=== PATIENT | female | born 1960 | race Caucasian/White ===

== ENCOUNTER 2020-06-02 06:59 | Outpatient (REF) | payer BC, SELFPAY ==
[2020-06-02 08:51] LABS: Alanine Aminotransferase 15 U/L (0-31); Albumin Level 4.1 g/dL (3.5-5.0); Alkaline Phosphatase 70 U/L (39-117); Anion Gap 14 (12-20); Aspartate Amino Transferase 13 U/L (5-31); Bilirubin Total 0.4 mg/dL (0.0-1.0); Blood Urea Nitrogen 13 mg/dL (9-16); Calcium 9.1 mg/dL (8.4-10.2); Carbon Dioxide 23 mmol/L (22-29); Chloride 107 mmol/L (96-108); Cholesterol 230 mg/dL; Estimated Glomerular Filt Rate > 60; Glucose Fasting 110 mg/dL (60-99); HDL Cholesterol 46 mg/dL; LDL Cholesterol Calculated 148 mg/dl; Potassium 4.4 mmol/L (3.3-5.1); Sodium 140 mmol/L (135-145); Total Protein 6.5 g/dL (6.5-8.0); Triglycerides 182 mg/dL
[2020-06-02 09:12] LABS: TSH reflex Free T4 1.44 uIU/mL (0.32-4.0)
[2020-06-02 09:40] LABS: Creatinine Urine 214.06 mg/dL
== END 2020-06-02 07:00 | disposition home or self-care (01) ==
LOC: HO.LAB 06:59
PROVIDERS: PCP Family Medicine; Visit Provider Family Medicine
DX: I10 Essential (primary) hypertension (principal); R73.03 Prediabetes; Z00.00 Encounter for general adult medical examination without abnormal findings
CPT/HCPCS: 36415; 80053; 80061; 82043; 84443

== ENCOUNTER 2021-10-30 09:20 | Outpatient (REF) | payer OTHER, SELFPAY ==
[2021-10-30 11:34] LABS: Hematocrit 42.4 % (37.0-47.0); Hemoglobin 14.1 g/dl (12.0-16.0); Mean Corpuscular HGB Conc 33.3 g/dl (31.0-35.0); Mean Corpuscular Hemoglobin 30.8 pg (27.0-33.0); Mean Corpuscular Volume 92.6 fL (80.0-98.0); Mean Platelet Volume 11.9 fL (9.4-12.3); Platelet Count 252 X10*3/uL (160-400); Red Blood Count 4.58 X10*6/uL (4.20-5.50); Red Cell Distribution Width 12.5 % (11.0-16.0); White Blood Count 9.6 X10*3/uL (4.8-10.8)
== END 2021-10-30 09:21 | disposition home or self-care (01) ==
LOC: HO.WFDLDS 09:20
PROVIDERS: Visit Provider Hospitalist
DX: M79.622 Pain in left upper arm (principal)
CPT/HCPCS: 36415; 85027

== ENCOUNTER 2022-07-08 06:19 | Outpatient (REF) | payer OTHER, SELFPAY ==
[2022-07-08 07:42] LABS: Hematocrit 40.5 % (37.0-47.0); Hemoglobin 13.5 g/dl (12.0-16.0); Mean Corpuscular HGB Conc 33.3 g/dl (31.0-35.0); Mean Corpuscular Hemoglobin 30.3 pg (27.0-33.0); Mean Platelet Volume 11.6 fL (9.4-12.3); Platelet Count 251 X10*3/uL (160-400); Red Blood Count 4.45 X10*6/uL (4.20-5.50); Red Cell Distribution Width 12.7 % (11.0-16.0); White Blood Count 8.9 X10*3/uL (4.8-10.8)
[2022-07-08 08:22] LABS: Alanine Aminotransferase 15 U/L (0-31); Albumin Level 4.1 g/dL (3.5-5.0); Alkaline Phosphatase 65 U/L (39-117); Anion Gap 13 (12-20); Aspartate Amino Transferase 13 U/L (5-31); Bilirubin Total 0.5 mg/dL (0.0-1.0); Blood Urea Nitrogen 24 mg/dL (9-16); Calcium 9.6 mg/dL (8.4-10.2); Carbon Dioxide 23 mmol/L (22-29); Chloride 109 mmol/L (96-108); Cholesterol 253 mg/dL; Estimated Glomerular Filt Rate > 60; Glucose Fasting 135 mg/dL (60-99); HDL Cholesterol 47 mg/dL; LDL Cholesterol Calculated 174 mg/dl; Potassium 4.6 mmol/L (3.3-5.1); Sodium 140 mmol/L (135-145); Total Protein 6.4 g/dL (6.5-8.0); Triglycerides 163 mg/dL
[2022-07-08 08:49] LABS: TSH reflex Free T4 1.79 uIU/mL (0.32-4.0)
== END 2022-07-08 06:20 | disposition home or self-care (01) ==
LOC: HO.LAB 06:19
PROVIDERS: PCP Family Medicine; Visit Provider Hospitalist
DX: R53.83 Other fatigue (principal); E11.9 Type 2 diabetes mellitus without complications
CPT/HCPCS: 36415; 80053; 80061; 84443; 85027

== ENCOUNTER 2022-07-08 08:57 | Outpatient (REF) | payer OTHER, SELFPAY ==
--- NOTE | ~2022-07-08 | XR_ITS ---
EXAMINATION: XR SHOULDER, LEFT CLINICAL INFORMATION: Pain COMPARISON: None available. TECHNIQUE: AP external rotation, Grashey, scapular Y, and axillary views of the left shoulder. FINDINGS: Bone alignment is normal. No fracture or dislocation. The glenohumeral joint is normal. Mild arthritis at the acromioclavicular joint. Soft tissue calcification suggestive of calcific bursitis or tendinitis. XR/XR shoulder LT min 2V IMPRESSION: Mild arthritis at the acromioclavicular joint. Soft tissue calcification suggestive of calcific bursitis or tendinitis.
== END 2022-07-08 08:58 | disposition home or self-care (01) ==
LOC: HO.HMGCX 08:57
PROVIDERS: PCP Family Medicine; Visit Provider Nurse Practitioner Family
DX: M25.512 Pain in left shoulder (principal); G89.29 Other chronic pain
CPT/HCPCS: 73030

== ENCOUNTER 2022-11-06 08:53 | Outpatient (AMB) | payer OTHER, SELFPAY ==
[2022-11-06 08:56] VITALS: BMI 38.4
--- NOTE | 2022-11-06 08:56 | A.OFFVIS_ITS ---
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 States pain has been present for about 2 yrs, seen with her PCP about 1 yr ago who referred patient to Orthopedic. Patient also seen again in June 2022 with her PCP who Rx'd Naproxen and a second referral to Orthopedics. Patient states her pain is mainly by her Rotator cuff, has weakness, states her ROM is good but painful. States she has been experiencing radiating sharp pain down her arm. No injury she can recall. 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 The patient reports her pain has been present for about 2 years. She states she was seen by her PCP about a year ago who referred her to orthopedics. The patient was seen again in 06/2022 by her PCP who prescribed her naproxen. She claims her pain is mainly at the rotator cuff. She states she has weakness with painful ROM. She reports radiating pain going down her arm. She does not recall any known injury. She states in the last 2 weeks she has been having pain in the left elbow. She also states last night she had pain in the left forearm. She confirms she has been doing yard work but does not overly bother her. She states she has been taking Naproxen since 06/2022 and this has given her relief. She states she takes one pill a day at night. Patient confirms being recently diagnosed with diabetes. 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 Cognitive needs: No Hearing needs: No Vision needs: No Review of Systems Const All systems reviewed & are unremarkable except as noted in HPI and below Physical Exam Vital Signs: BMI result Body Mass Index 38.4 Const General: cooperative and no acute distress Orientation/consciousness: patient oriented x3 Resp Effort & Inspection: normal respiratory effort and able to speak in complete sentences Cardio Peripheral pulses: Peripheral pulses 2+ throughout Skin General skin exam: no rashes or lesions noted Neuro General: patient oriented x3 Extrem Other: Left shoulder: Full ROM with pain at end range. Positive cross-body reach. 3/5 strength with empty can. NVI. Office Procedures Joint Injection/Drain Joint Injection/Drain Primary Site: left shoulder Prep: site was prepped using aseptic technique, ethochloride spray was applied and injection warnings given Injected: 40 mg of, DepoMedrol, with 8 mL of (2% plain lido) and in the subcromial space Approach Used: posterolateral Procedure: The patient tolerated the procedure well, but had some pain with the injection and there was some relief with the local anesthesia Coding 38476 - Large joint Procedure code (CPT) selection complete Results Reviewed Results Reviewed: 11/06/22 09:18 Lidocaine HCl 2 % MPF [Xylocaine 2 % MPF] 5 ml .ROUTE .STK-MED ONE methylPREDNISolone acetate [DEPO-MedroL] 40 mg .ROUTE .STK-MED ONE Assessment & Plan Assessment & Plan (1) Calcific tendonitis of left shoulder: Code(s): M75.32 - Calcific tendinitis of left shoulder (2) Diabetes: Code(s): E11.9 - Type 2 diabetes mellitus without complications Plan Ms. Harrison is a 62-year-old right hand dominant female who presents in the office today, as a new patient, for an evaluation of left shoulder pain. The patient reports her pain has been present for about 2 years. She states she was seen by her PCP about a year ago who referred her to orthopedics. The patient was seen again in 06/2022 by her PCP who prescribed her naproxen. She claims her pain is mainly at the rotator cuff. She states she has weakness with painful ROM. She reports radiating pain going down her arm. She does not recall any known injury. She states in the last 2 weeks she has been having pain in the left elbow. She also states last night she had pain in the left forearm. She confirms she has been doing yard work but does not overly bother her. She states she has been taking Naproxen since 06/2022 and this has given her relief. She states she takes one pill a day at night. Patient confirms being recently diagnosed with diabetes. The patient was offered a cortisone injection in the left shoulder with 40 mg of DepoMedrol. The patient was explained the risk, benefits, and alternatives to receiving this injection. After receiving consent for the injection, the patient had the procedure done while in office today. The patient tolerated the procedure well with no complications. Due to the patient?s history of diabetes, they were instructed to monitor her blood glucose level. The patient was informed that they could see a rise in th eir numbers and if the numbers became too high, they were instructed to call their PCP. The patient was also informed that they could have facial flushing as a side effect of the injection but this will pass. Follow up will be PRN, or sooner if needed. Medications: Refilled naproxen 500 mg PO BID PRN 60 tabs 1RF pain Patient Instructions: Scribed for Tanvi Eugene PA-C by Janice Aparicio electromedical service engineer, on 11/06/2022 at 9:00 am, EST. Coding Level of Care Code New Pt Level 4 (24520) Diagnoses Calcific tendonitis of left shoulder M75.32 Diabetes E11.9 CPT Codes Coding - 22536 Large joint: 90270 - Large joint ([id number])
== END 2022-11-06 09:27 | disposition home or self-care (01) ==
PROVIDERS: PCP Family Medicine; Visit Provider Physician Assistant
DX: M75.32 Calcific tendinitis of left shoulder (principal)
CPT/HCPCS: 20610; 99204

== ENCOUNTER → 2022-11-06 08:53 | Outpatient (BNVA) | payer OTHER, SELFPAY | PROVIDERS: PCP Family Medicine; Visit Provider Physician Assistant | DX: M75.32 Calcific tendinitis of left shoulder (principal); E11.9 Type 2 diabetes mellitus without complications | CPT/HCPCS: 20610; J1020 ==

== ENCOUNTER 2022-11-15 07:00 | Outpatient (REF) | payer OTHER, SELFPAY ==
[2022-11-15 08:44] LABS: Alanine Aminotransferase 15 U/L (0-31); Albumin Level 4.1 g/dL (3.5-5.0); Alkaline Phosphatase 82 U/L (39-117); Anion Gap 13 (12-20); Aspartate Amino Transferase 11 U/L (5-31); Bilirubin Total 0.5 mg/dL (0.0-1.0); Blood Urea Nitrogen 23 mg/dL (9-16); Calcium 10.2 mg/dL (8.4-10.2); Carbon Dioxide 22 mmol/L (22-29); Chloride 109 mmol/L (96-108); Cholesterol 138 mg/dL (<200); Estimated Glomerular Filt Rate > 60; Glucose Fasting 124 mg/dL (60-99); HDL Cholesterol 49 mg/dL (>40); LDL Cholesterol Calculated 68 mg/dL (<100); Potassium 4.3 mmol/L (3.3-5.1); Sodium 140 mmol/L (135-145); Total Protein 6.7 g/dL (6.5-8.0); Triglycerides 107 mg/dL (<150)
[2022-11-15 08:46] LABS: Estimated Average Glucose 137 mg/dL; Hemoglobin A1c % 6.4 % (<6.0)
[2022-11-15 09:14] LABS: Creatinine Urine 126.98 mg/dL; Microalbumin Urine < 5.0 mg/L
== END 2022-11-15 07:01 | disposition home or self-care (01) ==
LOC: HO.LAB 07:00
PROVIDERS: PCP Family Medicine; Visit Provider Family Medicine
DX: Z00.00 Encounter for general adult medical examination without abnormal findings (principal); I10 Essential (primary) hypertension; R42 Dizziness and giddiness; R73.01 Impaired fasting glucose
CPT/HCPCS: 36415; 80053; 80061; 82043; 82570; 83036

== ENCOUNTER 2023-01-28 08:44 | Outpatient (AMB) | payer OTHER, SELFPAY ==
--- NOTE | 2023-01-28 08:50 | A.OFFPC_ITS ---
Vital Signs 01/28/23 08:54 Height 5 ft 6 in Weight 134 lb BMI 21.6 BP 126/66 Blood Pressure Location Rt brachial Position Sitting Respiration 13 Pulse 93 Pulse Source Pulse Oximeter Pulse Oximetry (%) 98 Oxygen Delivery Method Room Air Intake Visit Reasons: f/u diabetes Intake Note: Patient is here to follow up on diabetes. Patients last A1C was on 10/21/22 with a result of 5.8. Senior Sas Developer Required: No Accompanied by: Self / Same As Patient Allergies No Known Allergies [No Known Allergies*] Allergy (Verified 01/28/23 09:00) Tobacco use date assessed: 08/18/22 Dental Screening Dental Screen Date: 01/28/23 Did you have a dental visit in the last 12 months?: No Did you have a dental problem in the last 6 months where you did not have access to dental care?: No Was dental information given to patient?: Patient has dentist HPI f/u diabetes 2 HPI Details 62 y/o female presents to f/u diabetes a nd hyperlipidemia. New diagnosis of diabetes and had started her on metformin. Had started her on artovastatin as well. Labs were drawn 11/15/22. Reviewed labs with pt. Last A1c 11/15/22 6.4%. Triglycerides 107. TC 138. LDL 68. HDL 49. A1c today 01/28/23 is 6.8%. She notes she had a recent dilated eye exam. 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 How often do you have a drink containing alcohol?: Never 3. How often do you have six or more drinks on one occasion?: Never Total Score: 0 CRISSY-7 AMB Questionnaire CRISSY-7 Date CRISSY - 7 assessed: 06/09/22 Source: Developed by Drs. Dio Maxwell, Dalia Chu, Jak Doty and colleagues, with an educational tomi from [employer]. Review of Systems Const Denies chills, Denies fatigue, Denies fever(s), Denies headache(s) and Denies weakness ENT Denies dizziness and Denies headache(s) Card Denies dyspnea Resp Denies cough, Denies dyspnea, Denies wheezing and Denies other (shortness of breath) Musc Denies numbness and Denies tingling Neuro Denies dizziness, Denies headache(s), Denies numbness, Denies tingling and Denies weakness Psych Denies anxiety and Denies depression Endo Denies fatigue Aller/Immun Denies wheezing Physical exam (Primary Care) Vital Signs: Last Vital Signs Pulse 93 01/28/23 08:54 Resp 13 01/28/23 08:54 BP 126/66 01/28/23 08:54 Pulse Ox 98 01/28/23 08:54 Oxygen Delivery Method Room Air 01/28/23 08:54 BMI result Body Mass Index 21.6 Tobacco/Smoking Status: Tobacco use Status Tobacco use date assessed 08/18/22 01/28/23 08:51 Patient Tobacco Use Status Current everyday Tobacco 01/28/23 09:02 e-Cigarette/Vaping Use Never Used 01/28/23 09:02 Thrive Assessment: Date of Thrive Assessment Date Thrive assessed 12/27/20 01/28/23 08:51 Const General: well developed; No acute distress Nutritional Appearance: well nourished Orientation/consciousness: patient oriented x3 [facility] Head: Yes normocephalic and Yes atraumatic Eyes General: appearance normal, both eyes and all related structures Pupils: Equal, round and reactive pupils present EOM: EOMs intact bilaterally Resp Effort & Inspection: normal respiratory effort Auscultation: clear to auscultation bilaterally Cardio Rate: regular rate Rhythm: regular rhythm Heart sounds: S1 normal heart sound present, S2 normal heart sound present, no gallops, no murmurs and no rubs Neuro General: patient oriented x3 and gait normal Cranial nerves: Yes Equal, round and reactive pupils present Psych Affect: normal affect Results AMB Hemoglobin A1c AMB Hemoglobin A1c 6.8 % Last Edit by Monica Novak CMA on 01/28/23 09:22 Assessment and Plan Assessment & Plan (1) Diabetes: Code(s): E11.9 - Type 2 diabetes mellitus without complications Plan: The?crept?up?slightly?to?6.8%.??Goal?is?less?than?7.0% She?had?recent?cortisone?injection?in?her?shoulder?and?this?may?be?the?cause?for ?increase?in?her?A1c. No?changes?to?her?medication?regimen?for?diabetes. Continue?metformin?as?prescribed Patient?has?had?ophthalmology?exam?in?the?past?year. Encouraged?her?to?get?annual?exams?for?her?eyes. (2) Hypercholesterolemia: Code(s): E78.00 - Pure hypercholesterolemia, unspecified (3) Chronic left shoulder pain: Code(s): M25.512 - Pain in left shoulder; G89.29 - Other chronic pain Plan: Left?shoulder?pain?much?improved?after?steroid?injection Encouraged?her?to?start?physical?therapy Orders: Orders AMB Hemoglobin A1c Today Z13.9 - Encounter for screening, unspecified Medications: Changed From atorvastatin 40 mg PO BEDTIME 30 days 30 tabs 2RF To atorvastatin 10 mg PO BEDTIME 90 tabs 3RF 90 days From metformin 250 mg (1/2 x 500 mg) PO DAILY 30 days 15 tabs 2RF To metformin 250 mg (1/2 x 500 mg) PO DAILY 45 tabs 2RF 90 days Coding Level of Care Code Est Pt Level 4 (51476) Diagnoses Diabetes E11.9 Hypercholesterolemia E78.00 Chronic left shoulder pain M25.512; G89.29
[2023-01-28 08:54] VITALS: BP 126/66; PULSE 93; RESP 13; O2SAT 98; BMI 21.6
== END 2023-01-28 09:33 | disposition home or self-care (01) ==
PROVIDERS: PCP Family Medicine; Visit Provider Family Medicine
DX: E11.9 Type 2 diabetes mellitus without complications (principal); E78.00 Pure hypercholesterolemia, unspecified; M25.512 Pain in left shoulder; G89.29 Other chronic pain; Z13.9 Encounter for screening, unspecified
CPT/HCPCS: 83036; 99214

== ENCOUNTER 2023-11-05 11:07 | Outpatient (AMB) | payer OTHER, SELFPAY ==
--- NOTE | 2023-11-05 11:09 | AM.OFFWIN_ITS ---
Intake Vital Signs 11/05/23 11:12 Height 5 ft 7.5 in Weight 242 lb BMI 37.3 BP 122/84 Blood Pressure Location Lt brachial Position Sitting Pulse 91 Pulse Source Pulse Oximeter Temp 98.1 F Temp Source Oral Pulse Oximetry (%) 98 Oxygen Delivery Method Room Air Intake Visit Reasons: EP ?sinus/respiratory infection Intake Note: pt c/o sinus congestion and pressure, ears popping, wheezing, cough. ? URI. Ongoing intermittently x 2 weeks Patient Tobacco Use Status: Current everyday Tobacco user Allergies No Known Allergies [No Known Allergies*] Allergy (Verified 11/05/23 11:10) Do you need a note to return to daycare/school/sports/work: No HPI HPI Comments History of Present Illness Details Patient is a 63-year-old female complaining of 2-3 weeks of sinus pain and congestion, left ear popping, a cough that is productive, chest congestion and wheezing. She states it comes and goes, some day she will feel better than others. She has been using Ventolin for relief of the wheezing and Flonase, Mucinex D and an allergy pill. She did vomit once but has not vomited since then. She denies any fevers chest pain or shortness of breath. She denies an diagnosis of asthma but she states she has an inhaler because she was given 1 when she had an upper respiratory infection previously. 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 Sexual orientation: Unable to collect Gender identity: Unable to collect Cognitive needs: No Hearing needs: No Vision needs: No Review of Systems Const All systems reviewed & are unremarkable except as noted in HPI and below Physical Exam Vital Signs: Last Vital Signs Temp 98.1 F 11/05/23 11:12 Pulse 91 11/05/23 11:12 BP 122/84 11/05/23 11:12 Pulse Ox 98 11/05/23 11:12 Oxygen Delivery Method Room Air 11/05/23 11:12 BMI result Body Mass Index 37.3 Const General: cooperative, healthy appearing, comfortable and no acute distress Orientation/consciousness: patient oriented x3 Limitations: no limitations HEENT Head: Yes normal to inspection Ears: hearing grossly normal bilaterally, external ears normal and TM's normal bilaterally General nose exam: Normal external nose present, Normal nares present and No nasal discharge present Face and sinus: Yes normal facial exam and Yes sinus tenderness Mouth: Normal oral and palatal mucosa present and moist mucous membranes Throat: Yes tonsils normal, Yes uvula midline and Yes posterior oropharynx abnormal (Erythema) Eyes General: appearance normal, both eyes and all related structures Neck Neck: Yes normal visual inspection Resp Effort & Inspection: normal respiratory effort, able to speak in complete sentences, Actively coughing, no respiratory distress, not tachypneic, no tripod positioning and no use of accessory muscles Auscultation: clear to auscultation bilaterally Cardio Rate: regular rate Rhythm: regular rhythm Heart sounds: normal S1 and S2 Skin General skin exam: no rashes or lesions noted Neuro General: patient oriented x3 Extrem General: Yes normal to inspection and Yes no clubbing, cyanosis or edema Assessment & Plan Assessment & Plan (1) Acute sinusitis: Code(s): J01.90 - Acute sinusitis, unspecified Qualifiers: Sinusitis location: maxillary Recurrence: non-recurrent Qualified Code(s): J01.00 - Acute maxillary sinusitis, unspecified Plan: As it has been 2-3 weeks, we will send Augmentin to her pharmacy. Recommended she continue the Flonase, allergy pill and Mucinex D, also start using a Neti pot. Educated patient on how to properly use Flonase. Plan See above Medications: New amoxicillin-pot clavulanate 875-125 mg 1 tab PO Q12H 10 tabs 0RF Coding Level of Care Code Est Pt Level 3 (30379) Diagnoses Acute non-recurrent maxillary sinusitis J01.00 Sinusitis location: maxillary Recurrence: non-recurrent
[2023-11-05 11:12] VITALS: BP 122/84; PULSE 91; TEMP 36.7; O2SAT 98; BMI 37.3
== END 2023-11-05 11:57 | disposition home or self-care (01) ==
PROVIDERS: PCP Family Medicine; Visit Provider Physician Assistant
DX: J01.00 Acute maxillary sinusitis, unspecified (principal)
CPT/HCPCS: 99213

== ENCOUNTER 2023-11-05 12:27 | Outpatient (REF) | payer OTHER, SELFPAY ==
[2023-11-05 14:36] LABS: Influenza A PCR NEGATIVE (Negative); Influenza B PCR NEGATIVE (Negative); Resp Syncy Virus RNA Qual PCR NEGATIVE (Negative); SARS COV2 PCR INHOUSE NEGATIVE (Negative)
== END 2023-11-05 12:28 | disposition home or self-care (01) ==
LOC: HO.LAB 12:27
PROVIDERS: Visit Provider Physician Assistant
DX: J06.9 Acute upper respiratory infection, unspecified (principal)
CPT/HCPCS: 0241U

== ENCOUNTER 2023-12-24 09:22 | Outpatient (AMB) | payer OTHER, SELFPAY ==
--- NOTE | 2023-12-24 09:42 | MHC.PC.OV ---
Vital Signs 12/24/23 09:51 Height 5 ft 7.5 in Weight 238 lb BMI 36.7 BP 129/67 Blood Pressure Location Lt brachial Position Sitting Respiration 16 Pulse 86 Pulse Source Pulse Oximeter Temp 97.7 F Temp Source Temporal Artery Scan Pulse Oximetry (%) 96 Oxygen Delivery Method Room Air Intake Visit Reasons: F/U Diabetes Intake Note: f/u DM Allergies No Known Allergies [No Known Allergies*] Allergy (Verified 12/24/23 09:50) Medication List - Last Reconciled 12/24/23 by Martin Thorne MD albuterol sulfate 90 mcg/actuation (ProAir HFA) 2 puffs inhalation Q6H PRN atorvastatin 10 mg PO BEDTIME 90 days fluticasone propionate 50 mcg/actuation (Flonase Allergy Relief) 1 spray intranasal DAILY naproxen 500 mg PO BID PRN pantoprazole 40 mg PO DAILY PRN Tobacco use date assessed: 08/18/22 Dental Screening Dental Screen Date: 01/28/23 HPI F/U Diabetes HPI Details 63 y/o female presents to f/u diabetes. Last A1c 01/28/23 6.8%. A1c today 12/24/23 is 7.1%. She notes she has trialed metformin for 2 months but was unable to tolerate it due to fatigue. She states fatigue improved when she stopped it. She reports R shoulder pain. Notes hx of L shoulder pain. HPI Comments History of Present Illness Details Documentation assistance for Martin Thorne MD, was provided by Breezy Dillard,? Therapy Director on 12/24/2023 at 10:18 AM EST. I, Dr. Thorne, have read, observed, and verified documentation. 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 1. Little interest or pleasure in doing things: not at all 2. Feeling down, depressed, or hopeless: not at all 3. Trouble falling or staying asleep, or sleeping too much: more than half the days 4. Feeling tired or having little energy: not at all 5. Poor appetite or overeating: several days 6. Feeling bad about yourself - or that you are a failure or have let yourself or your family down: not at all 7. Trouble concentrating on things, such as reading the newspaper or watching television: not at all 8. Moving or speaking so slowly that other people could have noticed. Or the opposite - being so fidgety or restless that you have been moving around a lot more than usual: not at all 9. Thoughts that you would be better off or of hurting yourself in some way: not at all Total score: 3 Source: Developed by Drs. Dio Maxwell, Dalia Chu, Jak Doty and colleagues, with an educational tomi from [employer]. Thrive Questionnaire Date Thrive assessed: 12/18/23 I am a: Patient What is your living situation today?: I have a steady place to live Within the past 12 months, did the food you bought not last and you didn't have the money to get more?: Sometimes True Within the past 12 months, did you worry whether your food would run out before you got money to buy more?: Sometimes True Do you have trouble paying for medicines?: No Do you have trouble getting transportation to medical appointments?: No Do you have trouble paying your heating and electricity bill?: Yes Do you have trouble taking care of your child, family member or friend?: No Do you have trouble with day-to-day activities such as bathing, preparing meals, shopping, managing finances, etc.?: No Are you currently unemployed and looking for a job?: No Are you interested in more education?: No Please select the resources that you would like help with: Utilities Currently or been in a relationship where the following occur: No concerns reported THRIVE Score: 3 AUDIT C Alcohol Use Questionnaire (AUDIT-C) 1. How often do you have a drink containing alcohol?: Monthly or less 2. How many drinks containing alcohol do you have on a typical day when you are drinking?: 1 or 2 3. How often do you have six or more drinks on one occasion?: Never Total Score: 1 CRISSY-7 AMB Questionnaire CRISSY-7 Date CRISSY - 7 assessed: 06/09/22 Feeling nervous, anxious, or on edge: 1 = Several days Not being able to stop or control worryin = More than half the days Worrying too much about different things: 2 = More than half the days Trouble relaxin = More than half the days Being so restless that it is hard to sit still: 0 = Not at all Becoming easily annoyed or irritable: 2 = More than half the days Feeling afraid as if something awful might happen: 0 = Not at all Total CRISSY-7 score (0-4 normal; 5-9 mild; 10-14 moderate; 15-21 severe): 9 Source: Developed by Drs. Dio Maxwell, Dalia Chu, Jak Doty and colleagues, with an educational tomi from [employer]. Review of Systems Const Denies chills, Denies fatigue, Denies fever(s), Denies headache(s) and Denies weakness ENT Denies dizziness and Denies headache(s) Card Denies dyspnea Resp Denies cough, Denies dyspnea, Denies wheezing and Denies other (shortness of breath) Musc Details: R shoulder pain Denies numbness and Denies tingling Neuro Denies dizziness, Denies headache(s), Denies numbness, Denies tingling and Denies weakness Psych Denies anxiety and Denies depression Endo Denies fatigue Aller/Immun Denies wheezing Physical exam (Primary Care) Vital Signs: Last Vital Signs Temp 97.7 F 12/24/23 09:51 Pulse 86 12/24/23 09:51 Resp 16 12/24/23 09:51 BP 129/67 12/24/23 09:51 Pulse Ox 96 12/24/23 09:51 Oxygen Delivery Method Room Air 12/24/23 09:51 BMI result Body Mass Index 36.7 Tobacco/Smoking Status: Tobacco use Status Tobacco use date assessed 08/18/22 12/24/23 09:42 Patient Tobacco Use Status Current everyday Tobacco 12/24/23 09:42 e-Cigarette/Vaping Use Never Used 12/24/23 09:42 PHQ-9: PHQ-9 Score PHQ-9: Total score 3 12/24/23 10:18 Thrive Assessment: Date of Thrive Assessment Date Thrive assessed 12/18/23 12/24/23 09:42 Currently or been in a relationship where the following occur: No concerns reported Const General: well developed; No acute distress Nutritional Appearance: well nourished Orientation/consciousness: patient oriented x3 HENMT Head: Yes normocephalic and Yes atraumatic Eyes General: appearance normal, both eyes and all related structures Pupils: Equal, round and reactive pupils present EOM: EOMs intact bilaterally Resp Effort & Inspection: normal respiratory effort Neuro General: patient oriented x3 and gait normal Cranial nerves: Yes Equal, round and reactive pupils present Psych Affect: normal affect Coding Level of Care Code Est Pt Level 3 (47914) Diagnoses Diabetes E11.9 Right shoulder pain M25.511 Assessment & Plan Assessment & Plan (1) Diabetes: Code(s): E11.9 - Type 2 diabetes mellitus without complications Category: Medical Plan: A1c?7.1%.??Goal?is?less?than?7% Patient?has?stopped?metformin?due?to?feelings?of?fatigue Will?try?glipizide Follow-up?in?a?few?months Diabetic?eye?exam?in?May.??No?diabetic?retinopathy.??Up-to-date (2) Right shoulder pain: Code(s): M25.511 - Pain in right shoulder Category: Medical Plan: History?of?left?shoulder?calcific?tendinitis?which?improved?with?steroid?injection. Check?x-ray Start?physical?therapy Ice/heat Can?use?naproxen?but?do?not?use?other?NSAIDs?at?the?same?time Referred?to?Ortho?as?this?is?likely?calcific?tendinitis?and?will?need?steroid?injection Orders: Orders PT Evaluation and Treatment Today M25.511 - Pain in right shoulder Microalbumin, Random (w Creat) Today I10 - Essential (primary) hypertension XR shoulder RT min 2V Today M25.511 - Pain in right shoulder Comprehensive [place]. Panel Fast Today Z00.00 - Encounter for general adult medical examination without abnormal findings Lipid Panel Today Z00.00 - Encounter for general adult medical examination without abnormal findings Referrals Orthopedics Referral M25.511 - Pain in right shoulder Medications: New glipizide ER 5 mg PO QAM 30 days 30 tabs 3RF Refilled naproxen 500 mg PO BID PRN 60 tabs 1RF pain M25.511 - Pain in right shoulder
[2023-12-24 09:51] VITALS: BP 129/67; PULSE 86; RESP 16; TEMP 36.5; O2SAT 96; BMI 36.7
== END 2023-12-24 10:33 | disposition home or self-care (01) ==
LOC: HO.HMCFM 09:23
PROVIDERS: PCP Family Medicine; Visit Provider Family Medicine
DX: E11.9 Type 2 diabetes mellitus without complications (principal); M25.511 Pain in right shoulder

== ENCOUNTER 2023-12-24 09:22 | Outpatient (REF) | payer OTHER, SELFPAY | END 2023-12-24 09:23 | disposition home or self-care (01) | LOC: HO.HMGCX 09:22 | PROVIDERS: PCP Family Medicine; Visit Provider Family Medicine | DX: M25.511 Pain in right shoulder (principal) | CPT/HCPCS: 73030 ==

== ENCOUNTER 2024-01-18 13:53 | Outpatient (AMB) | payer OTHER, SELFPAY ==
--- NOTE | 2024-01-18 14:16 | A.OFFVIS_ITS ---
Intake Visit Reasons: [facility]- Pain in right shoulder Intake Note: Anuradha is a 63 year old right hand dominant female who presents today for a evaluation of her right shoulder pain, last Left shoulder injection 10/25/2022. No hx of injury. Hx of doing PT for her right shoulder. She states she has tried one session, has a couple sessions left. Patient mentions she takes naproxen and Advil with mild relief. Her pain is worse when pulling, pushing and lifting. Patient informed me that when she is trying to wrap herself with a blanket her pain is worse. Allergies No Known Allergies [No Known Allergies*] Allergy (Verified 01/18/24 14:27) HPI HPI [facility]Prob- Pain in right shoulder: Details: 63-year-old right-hand dominant female who presents in the office today for an evaluation of right shoulder pain. I last saw the patient in the office on 11/07/23 for left shoulder pain and was given a cortisone injection in the left shoulder. A refill for naproxen 500 mg PO BID was sent to the pharmacy. While in the office today, the patient reports right shoulder pain. She mentions that the pain aggravates with pulling, pushing, and lifting. She also reports worsening pain when she tries to wrap herself with a blanket. She states she has attended one physical therapy session and has a couple of sessions left for her right shoulder. She has tried naproxen and Advil with mild relief. The patient has a medical history of diabetes. 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[employer]) Sexual orientation: Unable to collect Gender identity: Unable to collect Cognitive needs: No Hearing needs: No Vision needs: No Review of Systems Const All systems reviewed & are unremarkable except as noted in HPI and below Physical Exam Const General: cooperative, healthy appearing and no acute distress Resp Effort & Inspection: normal respiratory effort and able to speak in complete sentences Cardio Rate: regular rate Peripheral pulses: Peripheral pulses 2+ throughout GI Palpation (GI): Soft to palpation Skin Lesions: no lesions Rashes: no rashes Extrem Other: Right shoulder: Normal to inspection. No ecchymosis, erythema, or edema. Full shoulder ROM in all planes. Pain along the impingement arc. Positive cross-body reach. 4/5 strength with an empty can. negative drop arm. NVI. Office Procedures AMB Joint Injection/Aspiration Joint Injection/Aspiration Primary Site: right shoulder Prep: site was prepped using aseptic technique, ethochloride spray was applied and injection warnings given Injected: 80 mg of, DepoMedrol, with 8 mL of (2% plain lido ) and in the subcromial space Approach Used: posterolateral Procedure: The patient tolerated the procedure well, but had some pain with the injection and there was some relief with the local anesthesia Coding 41978 - Large joint Procedure code (CPT) selection complete Assessment & Plan Assessment & Plan (1) Painful arc syndrome of right shoulder: Code(s): M75.101 - Unspecified rotator cuff tear or rupture of right shoulder, not specified as traumatic Category: Medical Plan Ms. Harrison is a 63-year-old right-hand dominant female who presents in the office today for an evaluation of right shoulder pain. I last saw the patient in the office on 11/07/23 for left shoulder pain and was given a cortisone injection in the left shoulder. A refill for naproxen 500 mg PO BID was sent to the pharmacy. While in the office today, the patient reports right shoulder pain. She mentions that the pain aggravates with pulling, pushing, and lifting. She also reports worsening pain when she tries to wrap herself with a blanket. She states she has attended one physical therapy session and has a couple of sessions left for her right shoulder. She has tried naproxen and Advil with mild relief. The patient has a medical history of diabetes. The patient was offered a cortisone injection in the right shoulder with 80 mg of DepoMedrol. The patient was explained the risks, benefits, and alternatives to receiving this injection. After receiving consent for the injection, the patient had the procedure done while in office today. The patient tolerated the procedure well with no complications. Due to the patient?s history of diabetes, they were instructed to monitor her blood glucose level. The patient was informed that they could see a rise in their numbers and if the numbers became too high, they were instructed to call their PCP. The patient was also informed that they could have facial flushing as a side effect of the injection but this will pass. Follow up will be PRN, or sooner if needed. X-rays of the right shoulder, which were obtained while in the office today and were reviewed by me, Tanvi Eugene PA-C, revealed: Negative for acute fracture or dislocation. Patient Instructions: Scribed by Winter Wehlan medical appointment clerk, for Tanvi Eugene PA-C on 01/18/24 at 2:54 pm EST. Coding Level of Care Code Est Pt Level 3 (25974) Diagnoses Painful arc syndrome of right shoulder M75.101 CPT Codes Coding - 63105 Large joint: 77223 - Large joint ([id number])
== END 2024-01-18 15:10 | disposition home or self-care (01) ==
PROVIDERS: PCP Family Medicine; Visit Provider Physician Assistant
DX: M75.101 Unspecified rotator cuff tear or rupture of right shoulder, not specified as traumatic (principal)
CPT/HCPCS: 20610; 99213

== ENCOUNTER → 2024-01-18 13:53 | Outpatient (BNVA) | payer OTHER, SELFPAY | PROVIDERS: PCP Family Medicine; Visit Provider Physician Assistant | DX: M75.101 Unspecified rotator cuff tear or rupture of right shoulder, not specified as traumatic (principal) | CPT/HCPCS: 20610; J1010; J2003 ==

== ENCOUNTER 2024-02-01 08:00 | Outpatient (RCR) | payer OTHER, SELFPAY ==
--- NOTE | 2024-05-13 12:10 | MHC.PT.DC ---
[facility] [place] Office [place] Office [place] Office [address] Rosanna Berry [address] [phone] F: [phone] F: [phone] F: [phone] F: [phone] Physical Therapy Discharge Report Diagnosis: R shoulder pain Date of Surgery: Date of Evaluation: 01/06/24 Date of Discharge: 02/23/24 Treatments to Date: 2 Cancellations to Date: No Shows to Date: Discharge Status: Independent with HEP Patient Elected to Stop Discharge Summary: 02/01/24: pt started feeling unwell 24 minutes into treatment to we stopped at that time per her request. Her shoulder was feeling better overall at start of PT. 01/20/24: pt progressing well with skilled PT. good activity tolerance. CP to finish. Patient is a 63 year old R handed female who presents with s/s consistent with R shoulder pain. 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 Patient past medical history includes DM. Current impairments include pain, posture, ROM, strength, activity tolerance and functional mobility. Functional limitations include decreased ability to sleep, reach, lift, push, pull, and perform yard work. Patient is motivated with good rehab potential. Skilled PT will address impairments and functional limitations in order to achieve goals. Electronically signed by: Bobby Tirado, PT Please sign and return to therapist. Thank you for your referral.
== END 2024-05-13 12:10 | disposition home or self-care (01) ==
LOC: HO.PTCHIC 08:00
PROVIDERS: PCP Family Medicine; Visit Provider Family Medicine
DX: M25.511 Pain in right shoulder (principal)
CPT/HCPCS: 97110; 97162

== ENCOUNTER 2024-02-09 13:53 | Outpatient (AMB) | payer OTHER, SELFPAY ==
--- NOTE | 2024-02-09 14:16 | MHC.OFFWIV ---
Intake Vital Signs 02/09/24 14:19 Height 5 ft 7.5 in Weight 241 lb BMI 37.2 BP 122/74 Blood Pressure Location Lt brachial Position Sitting Pulse 94 Pulse Source Pulse Oximeter Pulse Oximetry (%) 97 Oxygen Delivery Method Room Air Intake Visit Reasons: EP ? sinus infection Intake Note: Patient here for severe sinus pressure, gum pain and chest congestion that has been present for about 5 days. Patient Tobacco Use Status: Current everyday Tobacco user Allergies No Known Allergies [No Known Allergies*] Allergy (Verified 02/09/24 14:21) Do you need a note to return to daycare/school/sports/work: No HPI EP ? sinus infection HPI Details This is a 63-year-old female patient who presents to the walk-in clinic today with report of a 5 day history of sinus congestion /pressure, mild productive cough with yellow / green sputum. Denies any fever or chills. Denies any known exposure to sick contacts. Has been using [id number] cold/ flu products, decongestants, and Afrin spray. Also has an albuterol inhaler which she uses p.r.n., however it is 5 years . denies any GI symptoms. 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[employer]) Sexual orientation: Unable to collect Gender identity: Unable to collect Cognitive needs: No Hearing needs: No Vision needs: No Review of Systems Const All systems reviewed & are unremarkable except as noted in HPI and below Physical Exam Vital Signs: Last Vital Signs Pulse 94 02/09/24 14:19 BP 122/74 02/09/24 14:19 Pulse Ox 97 02/09/24 14:19 Oxygen Delivery Method Room Air 02/09/24 14:19 BMI result Body Mass Index 37.2 Const General: cooperative and ill appearing acutely Limitations: no limitations HEENT Head: Yes normal to inspection Ears: hearing grossly normal bilaterally, external ears normal and TM's normal bilaterally General nose exam: Normal external nose present and Nasal discharge present mucoid Face and sinus: Yes sinus tenderness ( Frontal and maxillary) Mouth: Normal oral and palatal mucosa present Throat: Yes posterior oropharynx normal Neck Neck: Yes no lymphadenopathy Resp Effort & Inspection: normal respiratory effort Auscultation: rhonchi (otherwise clear throughout) upper bilaterally Cardio Rate: regular rate Rhythm: regular rhythm Skin General skin exam: no rashes or lesions noted Extrem General: Yes capillary refill normal and Yes no clubbing, cyanosis or edema Psych Appearance: grossly normal Mental Status: mental status grossly normal Speech and movement: Normal speech and movement present Assessment & Plan Assessment & Plan (1) Acute maxillary sinusitis: Code(s): J01.00 - Acute maxillary sinusitis, unspecified Qualifiers: Recurrence: non-recurrent Qualified Code(s): J01.00 - Acute maxillary sinusitis, unspecified Plan: Sinusitis unresponsive to conservative treatment. Will start on azithromycin. she states she has done well on this previously. We reviewed use and possible side effects. Her ProAir inhaler is also x5 years, so I will refill this for p.r.n. use. We discussed ongoing conservative measures with nasal spray, decongestants, Tylenol, adequate rest, hydration, healthy food intake. If she does not improve with time and treatment, or symptoms worsen / new symptoms develop, she can return to the clinic for further evaluation. She verbalizes understanding and agrees to plan. Medications: New azithromycin For 250 mg dose pack: take 500 mg today (day 1), then 250 mg for 4 days (days 2-5) PO 6 tabs 0RF J01.00 - Acute maxillary sinusitis, unspecified Changed From albuterol sulfate 90 mcg/actuation (ProAir HFA) 2 puffs inhalation Q6H PRN J01.00 - Acute maxillary sinusitis, unspecified To albuterol sulfate 90 mcg/actuation 2 puffs inhalation Q6H PRN 6.7 grams 1RF shortness of breath or wheezing J01.00 - Acute maxillary sinusitis, unspecified Coding Level of Care Code Est Pt Level 4 (29613) Diagnoses Acute non-recurrent maxillary sinusitis J01.00 Recurrence: non-recurrent
[2024-02-09 14:19] VITALS: BP 122/74; PULSE 94; O2SAT 97; BMI 37.2
== END 2024-02-09 14:58 | disposition home or self-care (01) ==
PROVIDERS: PCP Family Medicine; Visit Provider Nurse Practitioner Family
DX: J01.00 Acute maxillary sinusitis, unspecified (principal)

== ENCOUNTER 2024-03-10 13:02 | Outpatient (AMB) | payer OTHER, SELFPAY ==
--- NOTE | 2024-03-10 13:39 | MHC.OFFWIV ---
Intake Vital Signs 03/10/24 13:40 Height 5 ft 7.5 in Weight 242 lb BMI 37.3 BP 118/74 Blood Pressure Location Lt brachial Position Sitting Pulse 88 Pulse Source Pulse Oximeter Temp 97.8 F Temp Source Oral Pulse Oximetry (%) 94 Oxygen Delivery Method Room Air Intake Visit Reasons: EP pain on both ears, stuffy nose,congestion Intake Note: Patient here for congestion and bilat ear pain. she was put on antibiotics which she finished and felt like it got better but went right back to having the same symptoms. Patient Tobacco Use Status: Current everyday Tobacco user Allergies No Known Allergies [No Known Allergies*] Allergy (Verified 02/09/24 14:21) Do you need a note to return to daycare/school/sports/work: No HPI HPI Comments History of Present Illness Details 63 y/o female patient who presents to the walk in clinic with c/o productive cough for few weeks now. She is a chronic cigarette smoker. 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[employer]) Sexual orientation: Unable to collect Gender identity: Unable to collect Cognitive needs: No Hearing needs: No Vision needs: No Review of Systems Const All systems reviewed & are unremarkable except as noted in HPI and below Physical Exam Vital Signs: Last Vital Signs Temp 97.8 F 03/10/24 13:40 Pulse 88 03/10/24 13:40 BP 118/74 03/10/24 13:40 Pulse Ox 94 03/10/24 13:40 Oxygen Delivery Method Room Air 03/10/24 13:40 BMI result Body Mass Index 37.3 Const General: cooperative and no acute distress Nutritional Appearance: obese Orientation/consciousness: patient oriented x3 HEENT Head: Yes normocephalic Ears: external ears normal and TM abnormal with fluid behind the TM and retracted General nose exam: Normal external nose present Face and sinus: Yes sinuses nontender Mouth: moist mucous membranes Throat: Yes posterior oropharynx normal Resp Effort & Inspection: normal respiratory effort and able to speak in complete sentences Auscultation: clear to auscultation bilaterally, no crackles, no rales, rhonchi lower bilaterally and no wheezes Cardio Heart sounds: S1 normal heart sound present and S2 normal heart sound present Neuro General: patient oriented x3, gait normal and moves all extremities Psych Speech and movement: Normal speech and movement present Assessment & Plan Assessment & Plan (1) Cough: Code(s): R05.9 - Cough, unspecified Qualifiers: Cough type: subacute Qualified Code(s): R05.2 - Subacute cough Plan: Ordered chest Xray Ordered Abx Ordered Montelucast Stop smoking cigarettes. Orders: Orders XR chest 2V Today R05.2 - Subacute cough Medications: New doxycycline hyclate 100 mg PO BID 20 caps 0RF 10 days R05.2 - Subacute cough montelukast 10 mg PO BEDTIME 30 tabs 0RF R05.2 - Subacute cough benzonatate 100 mg PO TID 90 caps 0RF R05.2 - Subacute cough Coding Level of Care Code Est Pt Level 4 (56717) Diagnoses Subacute cough R05.2 Cough type: subacute Time Spent (min) 20
[2024-03-10 13:40] VITALS: BP 118/74; PULSE 88; TEMP 36.6; O2SAT 94; BMI 37.3
== END 2024-03-10 15:11 | disposition home or self-care (01) ==
PROVIDERS: PCP Family Medicine; Visit Provider Nurse Practitioner Family
DX: R05.2 Subacute cough (principal)

== ENCOUNTER → 2024-03-10 14:26 | Outpatient (BNV) | payer OTHER, SELFPAY | PROVIDERS: PCP Family Medicine; Visit Provider Radiology Diagnostic Radiology | DX: R05.2 Subacute cough (principal) | CPT/HCPCS: 71046 ==

== ENCOUNTER 2024-03-25 06:12 | Outpatient (REF) | payer OTHER, SELFPAY ==
[2024-03-25 07:41] LABS: Alanine Aminotransferase 18 U/L (0-31); Albumin Level 4.1 g/dL (3.5-5.0); Alkaline Phosphatase 72 U/L (39-117); Anion Gap 10 (12-20); Aspartate Amino Transferase 17 U/L (5-31); Bilirubin Total 0.4 mg/dL (0.0-1.0); Blood Urea Nitrogen 23 mg/dL (9-16); Calcium 9.8 mg/dL (8.4-10.2); Carbon Dioxide 24 mmol/L (22-29); Chloride 111 mmol/L (96-108); Cholesterol 145 mg/dL (<200); Estimated Glomerular Filt Rate > 60; Glucose Fasting 123 mg/dL (60-99); HDL Cholesterol 46 mg/dL (>40); LDL Cholesterol Calculated 78 mg/dL (<100); Potassium 4.2 mmol/L (3.3-5.1); Sodium 141 mmol/L (135-145); Total Protein 6.9 g/dL (6.5-8.0); Triglycerides 108 mg/dL (<150)
[2024-03-25 08:27] LABS: Creatinine Urine 150.51 mg/dL; Microalbum/Creatinine Ratio Ur 4.6 ug/mg cr (<30)
== END 2024-03-25 06:13 | disposition home or self-care (01) ==
LOC: HO.LAB 06:12
PROVIDERS: PCP Family Medicine; Visit Provider Family Medicine
DX: Z00.00 Encounter for general adult medical examination without abnormal findings (principal); I10 Essential (primary) hypertension
CPT/HCPCS: 36415; 80053; 80061; 82043; 82570

== ENCOUNTER 2024-03-30 08:34 | Outpatient (AMB) | payer OTHER, SELFPAY ==
--- NOTE | 2024-03-30 08:38 | MHC.PC.OV ---
Vital Signs 03/30/24 08:45 Height 5 ft 7.5 in Weight 241 lb 2 oz BMI 37.2 BP 131/70 Blood Pressure Location Lt brachial Position Sitting Respiration 16 Pulse 83 Pulse Source Pulse Oximeter Temp 98.4 F Temp Source Oral Pulse Oximetry (%) 96 Oxygen Delivery Method Room Air Intake Visit Reasons: f/u diabetes Intake Note: patient here for follow up on Diabetes Photo Checker Required: No Is last menstrual period known: No Post menopausal: No Patient : No Allergies No Known Allergies [No Known Allergies*] Allergy (Verified 03/30/24 08:44) Tobacco use date assessed: 03/30/24 Dental Screening Dental Screen Date: 03/30/24 Did you have a dental visit in the last 12 months?: Yes Did you have a dental problem in the last 6 months where you did not have access to dental care?: No Was dental information given to patient?: Patient has dentist HPI f/u diabetes HPI Details 63 y/o female presents to f/u diabetes. A1c today 03/30/24 6.7%. Had not tolerated metformin so we had switched her to glipizide 5mg. She notes she is tolerating glipizide well. She is on artovastatin 10mg for her lipids. Reports vision changes. Reports some anxiety/depression. HPI Comments History of Present Illness Details Documentation assistance for Martin Thorne MD, was provided by Breezy Dillard,? Dough Brake Machine Operator on 03/30/2024 at 9:10 AM EST. I, Dr. Thorne, have read, observed, and verified documentation. ?? 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 1. Little interest or pleasure in doing things: nearly every day 2. Feeling down, depressed, or hopeless: not at all 3. Trouble falling or staying asleep, or sleeping too much: not at all 4. Feeling tired or having little energy: not at all 5. Poor appetite or overeating: not at all 6. Feeling bad about yourself - or that you are a failure or have let yourself or your family down: not at all 7. Trouble concentrating on things, such as reading the newspaper or watching television: not at all 8. Moving or speaking so slowly that other people could have noticed. Or the opposite - being so fidgety or restless that you have been moving around a lot more than usual: not at all 9. Thoughts that you would be better off or of hurting yourself in some way: not at all Total score: 3 Source: Developed by Drs. Dio Maxwell, Dalia Chu, Jak Doty and colleagues, with an educational tomi from [employer] Thrive Questionnaire Date Thrive assessed: 12/18/23 I am a: Patient What is your living situation today?: I have a steady place to live Within the past 12 months, did the food you bought not last and you didn't have the money to get more?: I choose not to answer this question Within the past 12 months, did you worry whether your food would run out before you got money to buy more?: I choose not to answer this question Do you have trouble paying for medicines?: No Do you have trouble getting transportation to medical appointments?: No Do you have trouble paying your heating and electricity bill?: Yes Do you have trouble taking care of your child, family member or friend?: No Do you have trouble with day-to-day activities such as bathing, preparing meals, shopping, managing finances, etc.?: No Are you currently unemployed and looking for a job?: No Are you interested in more education?: No Please select the resources that you would like help with: None Currently or been in a relationship where the following occur: No concerns reported THRIVE Score: 1 AUDIT C Alcohol Use Questionnaire (AUDIT-C) 1. How often do you have a drink containing alcohol?: 2-4 times a month 2. How many drinks containing alcohol do you have on a typical day when you are drinking?: 1 or 2 3. How often do you have six or more drinks on one occasion?: Never Total Score: 2 CRISSY-7 AMB Questionnaire CRISSY-7 Date CRISSY - 7 assessed: 06/09/22 Feeling nervous, anxious, or on edge: 1 = Several days Not being able to stop or control worryin = Not at all Worrying too much about different things: 0 = Not at all Trouble relaxin = Not at all Being so restless that it is hard to sit still: 0 = Not at all Becoming easily annoyed or irritable: 0 = Not at all Feeling afraid as if something awful might happen: 0 = Not at all Total CRISSY-7 score (0-4 normal; 5-9 mild; 10-14 moderate; 15-21 severe): 1 Source: Developed by Drs. Dio Maxwell, Dalia Chu, Jak Doty and colleagues, with an educational tomi from [employer] Review of Systems Const Denies chills, Denies fatigue, Denies fever(s), Denies headache(s) and Denies weakness ENT Denies dizziness and Denies headache(s) Card Denies dyspnea Resp Denies cough, Denies dyspnea, Denies wheezing and Denies other (shortness of breath) Musc Denies numbness and Denies tingling Neuro Denies dizziness, Denies headache(s), Denies numbness, Denies tingling and Denies weakness Psych Reports anxiety and Reports depression Endo Denies fatigue Aller/Immun Denies wheezing Physical exam (Primary Care) Vital Signs: Last Vital Signs Temp 98.4 F 03/30/24 08:45 Pulse 83 03/30/24 08:45 Resp 16 03/30/24 08:45 BP 131/70 03/30/24 08:45 Pulse Ox 96 03/30/24 08:45 Oxygen Delivery Method Room Air 03/30/24 08:45 BMI result Body Mass Index 37.2 Tobacco/Smoking Status: Tobacco use Status Tobacco use date assessed 03/30/24 03/30/24 08:48 Patient Tobacco Use Status Current everyday Tobacco 03/30/24 08:40 e-Cigarette/Vaping Use Never Used 03/30/24 08:40 PHQ-9: PHQ-9 Score PHQ-9: Total score 3 03/30/24 08:40 Thrive Assessment: Date of Thrive Assessment Date Thrive assessed 12/18/23 03/30/24 08:40 Currently or been in a relationship where the following occur: No concerns reported Const General: well developed; No acute distress Nutritional Appearance: well nourished Orientation/consciousness: patient oriented x3 HENMT Head: Yes normocephalic and Yes atraumatic Eyes General: appearance normal, both eyes and all related structures Pupils: Equal, round and reactive pupils present EOM: EOMs intact bilaterally Resp Effort & Inspection: normal respiratory effort Auscultation: clear to auscultation bilaterally Cardio Rate: regular rate Rhythm: regular rhythm Heart sounds: S1 normal heart sound present, S2 normal heart sound present, no gallops, no murmurs and no rubs Neuro General: patient oriented x3 and gait normal Cranial nerves: Yes Equal, round and reactive pupils present Psych Affect: normal affect Coding Level of Care Code Est Pt Level 4 (39892) Diagnoses Diabetes E11.9 Hypercholesterolemia E78.00 Obesity E66.9 Vision changes H53.9 Anxiety with depression F41.8 Assessment & Plan Assessment & Plan (1) Diabetes: Code(s): E11.9 - Type 2 diabetes mellitus without complications Category: Medical Plan: A1c?now?back?to?6.8%.??Goal?is?less?than?7.0%. Overall?controlled. However,?patient?has?been?taking?his?medication?at?bedtime?and?recommend?she?taking?morning.??She?make?the?change. Continue?working?on?diabetic?diet,?exercise?and?weight?loss Patient?saw?her?rod machine operator?in?May?and?no?diabetic?retinopathy?was?seen (2) Hypercholesterolemia: Code(s): E78.00 - Pure hypercholesterolemia, unspecified Category: Medical Plan: Lipids?are?well?controlled?on?atorvastatin Continue?current?medication Continue?working?diet?exercise?and?weight?loss (3) Obesity: Code(s): E66.9 - Obesity, unspecified Category: Medical Plan: Encouraged wt loss Work?at?decrease?portion?sizes?and?work?at?trying?to?get?exercise?3?times?week (4) Vision changes: Code(s): H53.9 - Unspecified visual disturbance Category: Medical Plan: Patient?notes?ongoing?blurry?vision?which?she?discussed?with?her?eye?doctor?at?their?last?visit. She?has?glasses?and?eyedrops Blurriness?is?intermittent?and?changes?with?blinking. 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 Had?discussed?therapy?previously?but?she?did?not?have?time?for?this. Will?refer?her?to?nurse?navigator?now?to?help?connect?her?with?therapist. She?says?that?the?therapist?would?have?to?be?along?the?route?from?her?work?to?home.??She?can?discuss?with?nurse?navigator. Orders: Referrals Nurse Navigator Referral F41.8 - Other specified anxiety disorders
[2024-03-30 08:45] VITALS: BP 131/70; PULSE 83; RESP 16; TEMP 36.9; O2SAT 96; BMI 37.2
== END 2024-03-30 09:14 | disposition home or self-care (01) ==
PROVIDERS: PCP Family Medicine; Visit Provider Family Medicine
DX: E11.9 Type 2 diabetes mellitus without complications (principal); E78.00 Pure hypercholesterolemia, unspecified; E66.9 Obesity, unspecified; Z68.37 Body mass index [BMI] 37.0-37.9, adult; H53.9 Unspecified visual disturbance; F41.8 Other specified anxiety disorders

== ENCOUNTER → 2024-03-30 08:34 | Outpatient (BNVA) | payer OTHER, SELFPAY | PROVIDERS: PCP Family Medicine; Visit Provider Family Medicine ==

== ENCOUNTER 2024-04-12 08:02 | Outpatient (REF) | payer OTHER, SELFPAY ==
[2024-04-12 10:44] LABS: Influenza A PCR NEGATIVE (Negative); Influenza B PCR NEGATIVE (Negative); Resp Syncy Virus RNA Qual PCR NEGATIVE (Negative); SARS COV2 PCR INHOUSE NEGATIVE (Negative)
== END 2024-04-12 08:03 | disposition home or self-care (01) ==
LOC: HO.LAB 08:02
PROVIDERS: Physician Assistant; PCP Family Medicine
DX: J06.9 Acute upper respiratory infection, unspecified (principal)
CPT/HCPCS: 0241U

== ENCOUNTER 2024-04-12 08:02 | Outpatient (AMB) | payer OTHER, SELFPAY ==
[2024-04-12 08:05] VITALS: BP 124/80; PULSE 88; TEMP 37; O2SAT 95; BMI 37.2
--- NOTE | 2024-04-12 08:05 | AM.OFFWIN_ITS ---
Intake Vital Signs 04/12/24 08:05 Height 5 ft 7.5 in Weight 241 lb BMI 37.2 BP 124/80 Blood Pressure Location Rt brachial Position Sitting Pulse 88 Pulse Source Pulse Oximeter Temp 98.6 F Temp Source Oral Pulse Oximetry (%) 95 Oxygen Delivery Method Room Air Intake Visit Reasons: EP walking pneumonia back/not better Intake Note: Patient here for crackling/wheezing higher up in chest,cough and SOB that has been present since January. she was treated for walking pneumonia twice and was feeling better for the first couple of days after finishing antibiotics but symptoms came right back. Patient Tobacco Use Status: Current everyday Tobacco user Allergies No Known Allergies [No Known Allergies*] Allergy (Verified 04/12/24 08:15) Do you need a note to return to daycare/school/sports/work: No HPI HPI Comments History of Present Illness Details History - The patient is a 63-year-old female pr esenting with respiratory symptoms, initiating in mid-January. - Initial treatment with a Z-Lance provide d partial relief; further treatment with doxycycline was necessitated after a recurrence. A chest X-ray indicated chronic interstitial lung disease with mild acute inflammatory or infectious influence. - Following doxycycline, symptoms subdue d temporarily but resurfaced, manifesting as upper airway wheezing, coughing fits, mucus expectoration with occasional blood spots, and sinus drainage. - Her management has incorporated antiba cterials, nasal sprays, and inhalers; however, relief has been limited. Within her treatment, the use of nebulizers and distilled water with nasal irrigation was advised. - On/off smoker whole life Physical Exam General: Cooperative, healthy appearing, comfortable and no acute distress Orientation/consciousness: Patient oriented x3 Limitations: No limitations Head: Normal to inspection Ears: Hearing grossly normal bilaterally, external ears normal and TM's normal bilaterally Nose: Normal external nose present, Normal nares present and No nasal discharge present Face and sinus: Normal facial exam and Yes sinuses nontender Mouth: Normal oral and palatal mucosa present and moist mucous membranes Throat: Yes tonsils normal, Yes uvula midline. Posterior oropharynx erythema Eyes: Appearance normal, both eyes and all related structures Neck: Normal visual inspection Respiratory: Clear to auscultation bilaterally. Normal respiratory effort, able to speak in complete sentences, Actively coughing, no respiratory distress, not tachypneic, no tripod positioning and no use of accessory muscles. Cardiovascular: Regular rate and rhythm. 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[employer]) Sexual orientation: Unable to collect Gender identity: Unable to collect Cognitive needs: No Hearing needs: No Vision needs: No Review of Systems Const All systems reviewed & are unremarkable except as noted in HPI and below Physical Exam Vital Signs: Last Vital Signs Temp 98.6 F 04/12/24 08:05 Pulse 88 04/12/24 08:05 BP 124/80 04/12/24 08:05 Pulse Ox 95 04/12/24 08:05 Oxygen Delivery Method Room Air 04/12/24 08:05 BMI result Body Mass Index 37.2 Assessment & Plan Assessment & Plan (1) URI, acute: Code(s): J06.9 - Acute upper respiratory infection, unspecified Plan: Plan The management plan includes a prescription of Augmentin to treat sinusitis, augmenting with existing inhaler therapies and introducing montelukast for improved respiratory support. Saline nasal spray and Flonase for managing sinus congestion have been emphasized. Instructions regarding distilled water use with nasal irrigation have been provided. To evaluate for possible underlying COPD/ILD (as per CXR and smoking hx), pulmonary function tests are advised, sent message to PCP, facilitating informed future management. Continuous follow-up of inhaler usage is encouraged for appropriate respiratory care, and strategies for tobacco cessation have been discussed for chronic disease prevention and overall health optimization. Patient was informed and verbally consented to the use of an ambient scribe for clinic note documentation during this visit Orders: Orders SARS-CoV2/FLU/RSV Today J06.9 - Acute upper respiratory infection, unspecified Medications: New amoxicillin-pot clavulanate 875-125 mg 1 tab PO Q12H 14 tabs 0RF albuterol sulfate 90 mcg/actuation 2 puffs inhalation Q6H PRN 8.5 grams 0RF shortness of breath or wheezing or cough Coding Level of Care Code Est Pt Level 3 (93546) Diagnoses URI, acute J06.9
== END 2024-04-12 09:16 | disposition home or self-care (01) ==
PROVIDERS: PCP Family Medicine; Visit Provider Physician Assistant
DX: J06.9 Acute upper respiratory infection, unspecified (principal)

== ENCOUNTER 2024-08-12 09:13 | Outpatient (AMB) | payer OTHER, SELFPAY ==
--- NOTE | 2024-08-12 09:27 | MHC.PC.OV ---
Vital Signs 08/12/24 09:31 Height 5 ft 7.5 in Weight 240 lb 6 oz BMI 37.1 BP 120/80 Blood Pressure Location Rt brachial Position Sitting Respiration 16 Pulse 88 Pulse Source Pulse Oximeter Temp 98.4 F Temp Source Oral Pulse Oximetry (%) 98 Oxygen Delivery Method Room Air Intake Visit Reasons: f/u DM, HTN Intake Note: patient is scheduled to follow up on dm/htn. Patient also has a armpit rash x1week otc meds not helping resolve the issue City Jailer Required: No Allergies No Known Allergies (No Known Allergies*) Allergy (Verified 08/12/24 09:29) Medication List - Last Reconciled 08/12/24 by Martin Thorne MD albuterol sulfate 90 mcg/actuation 2 puffs inhalation Q6H PRN albuterol sulfate 90 mcg/actuation 2 puffs inhalation Q6H PRN atorvastatin 10 mg PO BEDTIME 90 days fluticasone propionate 50 mcg/actuation (Flonase Allergy Relief) 1 spray intranasal DAILY glipizide ER 5 mg PO QAM 30 days naproxen 500 mg PO BID PRN pantoprazole 40 mg PO DAILY 30 days Tobacco use date assessed: 03/30/24 Dental Screening Dental Screen Date: 03/30/24 HPI f/u DM, HTN HPI Details 64 y/o female presents to f/u diabetes. Last A1c 03/30/24 6.7%. She is on glipizide 5mg A1c today 7.3%. Pt notes diet could be better and did gain weight. Has complaints of a cough. HPI Comments History of Present Illness Details Documentation assistance for Martin Thorne MD, was provided by Breezy Dillard, Material Handler Loader on 08/12/2024 at 9:50 AM DANISH. I, Dr. Thorne, have read, observed, and verified documentation. 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[employer]) Sexual orientation: Unable to collect Gender identity: Unable to collect Cognitive needs: No Hearing needs: No Vision needs: No Questionnaire Thrive Questionnaire Date Thrive assessed: 03/23/24 I am a: Patient What is your living situation today?: I have a steady place to live Within the past 12 months, did the food you bought not last and you didn't have the money to get more?: I choose not to answer this question Within the past 12 months, did you worry whether your food would run out before you got money to buy more?: I choose not to answer this question Do you have trouble paying for medicines?: No Do you have trouble getting transportation to medical appointments?: No Do you have trouble paying your heating and electricity bill?: Yes Do you have trouble taking care of your child, family member or friend?: No Do you have trouble with day-to-day activities such as bathing, preparing meals, shopping, managing finances, etc.?: No Are you currently unemployed and looking for a job?: No Are you interested in more education?: No Please select the resources that you would like help with: None Currently or been in a relationship where the following occur: No concerns reported THRIVE Score: 1 CRISSY-7 AMB Questionnaire CRISSY-7 Date CRISSY - 7 assessed: 06/09/22 Source: Developed by Drs. Dio Maxwell, Dalia Chu, Jak Doty and colleagues, with an educational tomi from [employer]. Review of Systems Const Denies chills, Denies fatigue, Denies fever(s), Denies headache(s) and Denies weakness ENT Denies dizziness and Denies headache(s) Card Denies dyspnea Resp Denies cough, Denies dyspnea, Denies wheezing and Denies other (shortness of breath) Musc Denies numbness and Denies tingling Neuro Denies dizziness, Denies headache(s), Denies numbness, Denies tingling and Denies weakness Psych Denies anxiety and Denies depression Endo Denies fatigue Aller/Immun Denies wheezing Physical exam (Primary Care) Vital Signs: Last Vital Signs Temp 98.4 F 08/12/24 09:31 Pulse 88 08/12/24 09:31 Resp 16 08/12/24 09:31 BP 120/80 08/12/24 09:31 Pulse Ox 98 08/12/24 09:31 Oxygen Delivery Method Room Air 08/12/24 09:31 BMI result Body Mass Index 37.1 Tobacco/Smoking Status: Tobacco use Status Tobacco use date assessed 03/30/24 08/12/24 09:35 Patient Tobacco Use Status Current everyday Tobacco 08/12/24 09:35 e-Cigarette/Vaping Use Never Used 08/12/24 09:35 Thrive Assessment: Date of Thrive Assessment Date Thrive assessed 03/23/24 08/12/24 09:35 Currently or been in a relationship where the following occur: No concerns reported Const General: well developed; No acute distress Nutritional Appearance: well nourished Orientation/consciousness: patient oriented x3 HENMT Head: Yes normocephalic and Yes atraumatic Eyes General: appearance normal, both eyes and all related structures Pupils: Equal, round and reactive pupils present EOM: EOMs intact bilaterally Resp Effort & Inspection: normal respiratory effort Neuro General: patient oriented x3 and gait normal Cranial nerves: Yes Equal, round and reactive pupils present Psych Affect: normal affect Coding Level of Care Code Est Pt Level 4 (41747) Diagnoses Diabetes E11.9 Cough R05.9 Fungal infection of skin B36.9 Smoker F17.200 Assessment & Plan Assessment & Plan (1) Diabetes: Code(s): E11.9 - Type 2 diabetes mellitus without complications Category: Medical Plan: A1c?has?climbed?to?7.3%. She?notes?that?she?has?gained?some?weight?and?is?eating?more?carbs?in?the?morning She?also?notes?that?she?takes?her?glipizide?only?about?50%?time Encouraged?diabetic?diet Encouraged?better?consistency?with?taking?her?medication?as?prescribed. Will?follow-up?with?her?on?this?at?her?subsequent?visits. (2) Cough: Code(s): R05.9 - Cough, unspecified Category: Medical Plan: Irritating?and?patient?is?a?smoker Lungs?sound?clear?today Will?try?some?benzonatate If?she?is?still?having?problem?with?cough,?will?get?a?chest?x-ray (3) Fungal infection of skin: Code(s): B36.9 - Superficial mycosis, unspecified Category: Medical Plan: Will?give?her?a?script?for?clotrimazole?cream Avoid?excess?moisture (4) Smoker: Code(s): F17.200 - Nicotine dependence, unspecified, uncomplicated Category: Social Hx Plan: Patient?is?actively?working?on?weaning?down?and?quitting Encouraged?this Orders: Orders AMB Hemoglobin A1c Today E11.9 - Type 2 diabetes mellitus without complications Medications: New benzonatate 100 mg PO BID PRN 28 caps 0RF cough 14 days clotrimazole 1% 1 appl topical BID 45 grams 0RF 2 weeks
[2024-08-12 09:31] VITALS: BP 120/80; PULSE 88; RESP 16; TEMP 36.9; O2SAT 98; BMI 37.1
== END 2024-08-12 10:14 | disposition home or self-care (01) ==
LOC: HO.HMCFM 09:13
PROVIDERS: PCP Family Medicine; Visit Provider Family Medicine
DX: E11.9 Type 2 diabetes mellitus without complications (principal); R05.9 Cough, unspecified; B36.9 Superficial mycosis, unspecified; F17.200 Nicotine dependence, unspecified, uncomplicated

== ENCOUNTER → 2024-08-12 09:13 | Outpatient (BNVA) | payer OTHER, SELFPAY | PROVIDERS: PCP Family Medicine; Visit Provider Family Medicine | DX: E11.9 Type 2 diabetes mellitus without complications (principal); R05.9 Cough, unspecified; B36.9 Superficial mycosis, unspecified; F17.210 Nicotine dependence, cigarettes, uncomplicated; Z79.84 Long term (current) use of oral hypoglycemic drugs | CPT/HCPCS: 83036 ==

== ENCOUNTER 2024-10-13 15:52 | Outpatient (AMB) | payer OTHER, SELFPAY ==
--- OUTSIDE RECORDS SUMMARY | 2024-10-13 15:56 | XMS_ITS | Patient Health Record ---
Author Organization [facility] Address [address] [place] [address] Care Team Providers Care Finish Opener Name Role Phone Coco(inactive) Timmy OAKLEY Primary Care Provider U gaurav Vang Dio Unavailable [phone] Reason For Referral No Information Medications Medication SIG (Take, Route, Frequency, Duration) Notes Start Date End Date Status Colyte w Flavor Packs 240 GM 8 ounces every 20 minutes until finished Orally as directed for 1 day(s) 12/17/2016 Active Pantoprazole Sodium Active Wellbutrin Active LORazepam prn Active ProAir HFA prn Active Furosemide Active Problems Problem Type SNOMED Code ICD Code Onset Dates Problem Status W/U Status Risk Notes Problem [id number] Encounter for screening for malignant neoplasm of colon (Z12.11) Active confirmed Problem 886729374 History of adenomatous polyp of colon (Z86.010) Active confirmed Problem Screening for malignant neoplasm of rectum (540246274) Encounter for screening for malignant neoplasm of rectum (Z12.12) Active confirmed Problem [id number] Gastroesophageal reflux disease, esophagitis presence not specified (K21.9) Active confirmed Plan Of Treatment Pending Test Test Name Order Date GI BIOPSY 12/31/2016 Future Test Test Name Order Date COLONOSCOPY 11/10/2012 UPPER GI ENDOSCOPY 04/15/2016 COLONOSCOPY 04/15/2016 Insurance Providers Payer Name Payer Address Payer Phone Subscriber Number Group Number Insured Name Patient Relationship to Insured Coverage Start Date [facility]age End Date [facility] [address] [place] [address] [id number] RAMAN MARTINEZ Self - patient is the insured Medical (General) History Medical History History ICD Code Edema hydradenitis Hyperlipidemia Denies TN,DM,CVA,renal disease Depression Asthma Screening colonoscopy in 2012--several tubular adenomas removed, lipoma at 25 cm(was biopsied), diverticulosis, and internal hemorrhoids GERD Surgical History Surgery Date(Month/Year) Pilonidal cyst
--- NOTE | 2024-10-13 16:04 | MHC.PC.OV ---
Vital Signs 10/13/24 16:12 Height 5 ft 7 in Weight 243 lb BMI 38.1 BP 120/82 Blood Pressure Location Rt brachial Position Sitting Respiration 16 Pulse 90 Pulse Source Pulse Oximeter Temp 98.2 F Temp Source Temporal Artery Scan Pulse Oximetry (%) 96 Oxygen Delivery Method Room Air Intake Visit Reasons: CPE with f/u labs and health maint. Intake Note: Anuradha presents in the office today for her annual physical. Allergies No Known Allergies (No Known Allergies*) Allergy (Verified 10/13/24 16:08) Tobacco use date assessed: 10/13/24 Dental Screening Dental Screen Date: 10/13/24 Did you have a dental visit in the last 12 months?: No Did you have a dental problem in the last 6 months where you did not have access to dental care?: No Was dental information given to patient?: Patient has dentist HPI HPI Comments History of Present Illness Details This is a 64-year-old female with a past medical history of type 2 diabetes, obesity and hyperlipidemia presenting for a physical exam. Patient requests referral to [facility] for a skin exam. She has numerous skin lesions that are chronic, and she has had them evaluated. Denies history of skin cancer. Patient also requests referral to [facility] because she is due for colonoscopy. She is taking glipizide for type 2 diabetes. She is not taking consistently because it causes fatigue, and she reports weight gain on it. Hemoglobin A1c is 6.6% today. Tried metformin which also resulted in fatigue. She reports eye exam is up-to-date and she has no known diabetic complications. She reports mammogram and gynecology exam is up-to-date. She goes to [facility] in [place]. She declines influenza vaccine. She will get the pneumonia vaccine at her pharmacy. She endorses seasonal allergies. She takes Flonase in his wondering what she can take as an antihistamine. She tried Claritin and Zyrtec. ROS: Constitutional: No unexplained weight loss, fever, chills, fatigue or night sweats. Eyes: No vision changes, blurry vision, double vision, eye pain. She endorses itchy, watery eyes with allergies. ENT: No hearing loss, sore throat, sinus pain. She endorses sneezing and congestion with seasonal allergies. Respiratory: No shortness of breath, cough or sputum production. Cardiovascular: No chest pain, chest pressure or chest discomfort. No palpitations or pedal edema. Gastrointestinal: No anorexia, nausea, vomiting or diarrhea. No abdominal pain or blood in stool. Genitourinary: No dysuria, hematuria, urinary frequency. Neurologic: No headache, dizziness, syncope, unilateral weakness, ataxia, numbness or tingling in the extremities. Musculoskeletal: No muscle pain, back pain, joint pain or swelling. Hematologic/Lymphatics: No bleeding or bruising. No painful lymph nodes. Skin: No rash Endocrine: No cold or heat intolerance. No polyuria or polydipsia. Psychiatric: No depression or anxiety. No SI/HI. Physical exam: Constitutional: Alert, in no distress. Head: Normocephalic. Eyes: Pupils are equal, round and reactive to light. Extraocular muscles intact. Ear, Nose and Throat: Canals clear. TMs normal. Normal nasal mucosa. No nasal discharge. No oral lesions. Neck: Supple, Full range of motion. No lymphadenopathy. No palpable thyroid masses. Respiratory: Clear to auscultation. Cardiovascular: S1 S2 regular. No murmurs. No carotid bruits. Gastrointestinal: Abdomen soft, non-tender, non-distended. Normal bowel sounds. No palpable masses. Neurologic: No focal neurological deficits. Symmetric patellar reflexes. Moves all extremities spontaneously. Sensation intact bilaterally. Skin: No rash. Numerous nevi and seborrheic keratoses on the upper body Musculoskeletal: No gross deformities. Normal range of motion. Extremities: Warm and well perfused. No clubbing, cyanosis or edema. Intact peripheral pulses bilaterally. Psychiatric: Normal mood and affect [facility] Medical History (Updated 10/13/24 @ 17:35 by MARQUIS Saucedo) Seasonal allergies Routine physical examination Social History (Updated 10/13/24 @ 16:11 by Marisel Ang MA) Household Members: Children Housing: House Alcohol intake: current Patient Tobacco Use Status: Current everyday Tobacco user Cigarettes Per Day: 14 e-Cigarette/Vaping Use: Never Used Second Hand Smoke Exposure: No Use of substances other than those prescribed or required for medical reasons: No service: No Current occupational status: employed 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 1. Little interest or pleasure in doing things: not at all 2. Feeling down, depressed, or hopeless: not at all 3. Trouble falling or staying asleep, or sleeping too much: nearly every day 4. Feeling tired or having little energy: more than half the days 5. Poor appetite or overeating: not at all 6. Feeling bad about yourself - or that you are a failure or have let yourself or your family down: not at all 7. Trouble concentrating on things, such as reading the newspaper or watching television: not at all 8. Moving or speaking so slowly that other people could have noticed. Or the opposite - being so fidgety or restless that you have been moving around a lot more than usual: not at all 9. Thoughts that you would be better off or of hurting yourself in some way: not at all Total score: 5 Depression Screening Interpretation: Positive Depression Screening Follow-up: Follow-up Visit Requested (She denies depression and attributes fatigue to glipizide. When she does not take it she does not have fatigue.) Depression Screening Done: Yes 69310 - PHQ-9 Billing: Yes Source: Developed by Drs. Dio Maxwell, Dalia Chu, Jak Doty and colleagues, with an educational tomi from [employer]. Thrive Questionnaire Date Thrive assessed: 10/13/24 I am a: Patient What is your living situation today?: I have a steady place to live Within the past 12 months, did the food you bought not last and you didn't have the money to get more?: I choose not to answer this question Within the past 12 months, did you worry whether your food would run out before you got money to buy more?: I choose not to answer this question Do you have trouble paying for medicines?: No Do you have trouble getting transportation to medical appointments?: No Do you have trouble paying your heating and electricity bill?: Yes Do you have trouble taking care of your child, family member or friend?: No Do you have trouble with day-to-day activities such as bathing, preparing meals, shopping, managing finances, etc.?: No Are you currently unemployed and looking for a job?: No Are you interested in more education?: No Please select the resources that you would like help with: None Currently or been in a relationship where the following occur: No concerns reported THRIVE Score: 1 AUDIT C Alcohol Use Questionnaire (AUDIT-C) 1. How often do you have a drink containing alcohol?: Monthly or less 2. How many drinks containing alcohol do you have on a typical day when you are drinking?: 1 or 2 3. How often do you have six or more drinks on one occasion?: Never Total Score: 1 CRISSY-7 AMB Questionnaire CRISSY-7 Date CRISSY - 7 assessed: 10/13/24 Feeling nervous, anxious, or on edge: 0 = Not at all Not being able to stop or control worryin = Not at all Worrying too much about different things: 0 = Not at all Trouble relaxin = Not at all Being so restless that it is hard to sit still: 0 = Not at all Becoming easily annoyed or irritable: 3 = Nearly every day Feeling afraid as if something awful might happen: 0 = Not at all Total CRISSY-7 score (0-4 normal; 5-9 mild; 10-14 moderate; 15-21 severe): 3 Source: Developed by Drs. Dio Maxwell, Dalia Chu, Jak Doty and colleagues, with an educational tomi from [employer]. CRISSY-7 Assessment Billing CRISSY-7 Assessment Tool: CRISSY-7 Assessment 46332 Physical exam (Primary Care) Vital Signs: Last Vital Signs Temp 98.2 F 10/13/24 16:12 Pulse 90 10/13/24 16:12 Resp 16 10/13/24 16:12 BP 120/82 10/13/24 16:12 Pulse Ox 96 10/13/24 16:12 Oxygen Delivery Method Room Air 10/13/24 16:12 BMI result Body Mass Index 38.1 Tobacco/Smoking Status: Tobacco use Status Tobacco use date assessed 10/13/24 10/13/24 16:16 Patient Tobacco Use Status Current everyday Tobacco 10/13/24 16:11 e-Cigarette/Vaping Use Never Used 10/13/24 16:11 PHQ-9: PHQ-9 Score PHQ-9: Total score 5 10/13/24 16:23 Depression Screening Interpretation: Positive Depression Screening Follow-up: Follow-up Visit Requested (She denies depression and attributes fatigue to glipizide. When she does not take it she does not have fatigue.) Thrive Assessment: Date of Thrive Assessment Date Thrive assessed 10/13/24 10/13/24 16:23 Currently or been in a relationship where the following occur: No concerns reported Results AMB Hemoglobin A1c AMB Hemoglobin A1c 6.6 % Last Edit by Marisel Ang MA on 10/13/24 16:29 Coding Level of Care Code Est Pt Prev Care 40-64y(73533) Diagnoses Routine physical examination Z00.00 Diabetes type 2, controlled E11.9 Type 2 diabetes mellitus without complication, without long-term current use of insulin E11.9 Diabetes mellitus type: type 2 Diabetes mellitus correction insulin use: without long term care administrator use Diabetes mellitus complication status: without complication BMI 38.0-38.9,adult Z68.38 Hyperlipidemia E78.5 Seasonal allergies J30.2 Additional Codes CRISSY-7 Assessment Billing - CRISSY-7 Assessment Tool: CRISSY-7 Assessment 04606 ([id number]) PHQ-9 - 76242 - PHQ-9 Billing: Yes ([id number]) Assessment & Plan Assessment & Plan (1) Routine physical examination: Code(s): Z00.00 - Encounter for general adult medical examination without abnormal findings Category: Medical (2) Diabetes type 2, controlled: Code(s): E11.9 - Type 2 diabetes mellitus without complications Category: Medical (3) Diabetes: Code(s): E11.9 - Type 2 diabetes mellitus without complications Category: Medical Qualifiers: Diabetes mellitus type: type 2 Diabetes mellitus correction insulin use: without correction use Diabetes mellitus complication status: without complication Qualified Code(s): E11.9 - Type 2 diabetes mellitus without complications (4) BMI 38.0-38.9,adult: Code(s): Z68.38 - Body mass index [BMI] 38.0-38.9, adult Category: Medical (5) Hyperlipidemia: Code(s): E78.5 - Hyperlipidemia, unspecified Category: Medical (6) Seasonal allergies: Code(s): J30.2 - Other seasonal allergic rhinitis Category: Medical Plan Patient is seen today for a routine physical. As part of this visit we reviewed the following issues, which are considered and essential part of preventative health in this age group: - Breast Cancer screening - Annual Casework Specialist exam - Screening for colon cancer - Blood pressure screening - Cholesterol screening - Osteoporosis prevention including calcium/vitamin D intake, weight bearing exercise & smoking cessation - Nutritional and exercise counseling - Counseling of injury prevention including fire prevention, smoke alarms and seat belt usage - Screening for depression - Education about skin cancer - Recommendations about immunizations - Recommendation of an eye exam - Screening for substance abuse She denies contraindications to GLP 1. She does not tolerate metformin, and she has fatigue on glipizide and weight gain. Prescribed Mounjaro 2.5 mg weekly. Side effects and administration reviewed. Instructed to stop glipizide once she begins this medication. Continue annual eye exams and efforts at weight loss. Consider referral to dietitian and chili pepper grinder. Patient will have her lab work done. Glucometer sent to pharmacy. Continue Flonase. Add Xyzal 5 mg at bedtime. Referred to Dermatology and Gastroenterology. Follow up in 3 months for diabetic management. Orders: Orders AMB Hemoglobin A1c Today E11.9 - Type 2 diabetes mellitus without complications, R73.03 - Prediabetes Referrals Dermatology Referral Z12.83 - Encounter for screening for malignant neoplasm of skin Gastroenterology Referral Z12.11 - Encounter for screening for malignant neoplasm of colon Medications: New blood-glucose meter (FreeStyle Lite Meter kit) as directed to check blood sugar 1 ea 0RF E11.9 - Type 2 diabetes mellitus without complications lancets (FreeStyle Lancets) Use to monitor blood glucose once daily 100 ea 5RF blood sugar diagnostic (FreeStyle Lite Strips) 1 strip miscellaneous DAILY 100 strips 5RF levocetirizine (Xyzal) 5 mg PO BEDTIME 90 tabs 0RF tirzepatide (Mounjaro) for 4 weeks 2.5 mg (0.5 mL) subcut QWEEK 2 mL 0RF Refilled fluticasone propionate 50 mcg/actuation (Flonase Allergy Relief) administer into each nostril 1 spray intranasal DAILY 9.9 mL 1RF benzonatate 100 mg PO BID PRN 28 caps 0RF cough 14 days Discontinued glipizide ER Discontinued Reason: Doctor's Order 5 mg PO QAM 30 days 30 tabs 3RF
[2024-10-13 16:12] VITALS: BP 120/82; PULSE 90; RESP 16; TEMP 36.8; O2SAT 96; BMI 38.1
== END 2024-10-13 16:57 | disposition home or self-care (01) ==
LOC: HO.HMCFM 15:52
PROVIDERS: PCP Family Medicine; Visit Provider Physician Assistant Medical
DX: Z00.00 Encounter for general adult medical examination without abnormal findings (principal); E11.69 Type 2 diabetes mellitus with other specified complication; Z68.38 Body mass index [BMI] 38.0-38.9, adult; E78.5 Hyperlipidemia, unspecified; J30.2 Other seasonal allergic rhinitis

== ENCOUNTER → 2024-10-13 15:52 | Outpatient (BNVA) | payer OTHER, SELFPAY | PROVIDERS: PCP Family Medicine; Visit Provider Physician Assistant Medical | DX: Z00.00 Encounter for general adult medical examination without abnormal findings (principal); E11.9 Type 2 diabetes mellitus without complications; J30.2 Other seasonal allergic rhinitis; E78.5 Hyperlipidemia, unspecified; E66.9 Obesity, unspecified; Z68.38 Body mass index [BMI] 38.0-38.9, adult; Z13.31 Encounter for screening for depression; Z13.39 Encounter for screening examination for other mental health and behavioral disorders | CPT/HCPCS: 83036; 96127 ==

== ENCOUNTER 2024-12-02 08:42 | Outpatient (AMB) | payer OTHER, SELFPAY ==
--- NOTE | 2024-12-02 08:44 | AM.OFFWIN_ITS ---
Intake Vital Signs 12/02/24 08:46 Height 5 ft 7 in Weight 240 lb BMI 37.6 BP 120/80 Blood Pressure Location Lt brachial Position Sitting Pulse 89 Pulse Source Pulse Oximeter Temp 97.6 F Temp Source Oral Pulse Oximetry (%) 99 Oxygen Delivery Method Room Air Intake Visit Reasons: left ear pain Intake Note: pt presents with LT ear pain and vertigo Patient Tobacco Use Status: Current everyday Tobacco user Allergies No Known Allergies (No Known Allergies*) Allergy (Verified 12/02/24 08:47) Do you need a note to return to daycare/school/sports/work: No HPI HPI Comments History of Present Illness Details History - The patient is a 64-year-old female pr esenting with symptoms of allergic rhinitis and concerns about a possible upper respiratory tract infection. - The patient reports taking allergy med ication regularly, specifically Zyrtec, and using Flonase once daily. - She experiences intermittent itching a nd pain in the left ear, which she associates with her allergies. - The patient describes a sensation of i mbalance and mild headache, suspecting an upper respiratory issue. - She has been exposed to COVID-19 cases at her workplace but practices regular handwashing. - Diabetes mellitus: The patient mention s a history of diabetes, currently not on medication, and is aware of the need to monitor blood glucose levels. - Asthma: The patient has a history of a sthma but reports no recent exacerbations requiring inhaler use. Physical Exam General: Cooperative, healthy appearing, comfortable and no acute distress Orientation/consciousness: Patient oriented x3 Limitations: No limitations Head: Normal to inspection Ears: Hearing grossly normal bilaterally, external ears normal, TMs normal Nose: Normal external nose present, Normal nares present, No nasal discharge present Face and sinus: Normal facial exam, Yes sinuses mild tenderness Mouth: Normal oral and palatal mucosa present and moist mucous membranes Throat: no tonsils, No/small uvula present, Posterior oropharynx erythema, no exudates Eyes: Appearance normal, both eyes and all related structures Neck: Normal visual inspection, full ROM Respiratory: Clear to auscultation bilaterally. Normal respiratory effort, able to speak in complete sentences, not Actively coughing, no respiratory distress, not tachypneic, no tripod positioning and no use of accessory muscles Cardiovascular: Regular rate and rhythm. Normal S1 and S2 Skin: No rashes or lesions noted Neuro: Patient oriented x3 Extremities: Normal to inspection and Yes no clubbing, cyanosis or edema Review of Systems - Ears, Nose, Throat: Reports itching an d pain in the left ear, intermittent headache, and nasal congestion. - Respiratory: Denies cough and signific ant congestion. - General: Reports exposure to COVID-19 cases at work but denies symptoms of COVID-19. - Endocrine: Reports history of diabetes mellitus, currently not on medication. 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[employer]) Sexual orientation: Unable to collect Gender identity: Unable to collect Cognitive needs: No Hearing needs: No Vision needs: No Physical Exam Vital Signs: Last Vital Signs Temp 97.6 F 12/02/24 08:46 Pulse 89 12/02/24 08:46 BP 120/80 12/02/24 08:46 Pulse Ox 99 12/02/24 08:46 Oxygen Delivery Method Room Air 12/02/24 08:46 BMI result Body Mass Index 37.6 Assessment & Plan Assessment & Plan (1) Acute viral sinusitis: Code(s): J01.90 - Acute sinusitis, unspecified; B97.89 - Other viral agents as the cause of diseases classified elsewhere Plan: Patient was informed and verbally consented to the use of an ambient scribe for clinic note documentation during this visit. - VSS, pt well appearing and PE remarkable for mild sinus tenderness and posterior oropharynx erythema. - Continue current allergy medication regimen with Zyrtec and Flonase. - Consider temporary increase in Flonase to twice daily if symptoms persist OR consider Afrin for nasal congestion relief, limited to three days to avoid rebound congestion. - Viral panel testing to rule out viral infections, including COVID-19. - Monitor for any signs of asthma exacerbation and use inhaler as needed. Orders: Orders Resp Pathogen Panel - [facility] Today J06.9 - Acute upper respiratory infection, unspecified Medications: New prednisone 20 mg PO QAM 5 tabs 0RF Coding Level of Care Code Est Pt Level 3 (13921) Diagnoses Acute viral sinusitis J01.90; B97.89
[2024-12-02 08:46] VITALS: BP 120/80; PULSE 89; TEMP 36.4; O2SAT 99; BMI 37.6
== END 2024-12-02 09:19 | disposition home or self-care (01) ==
PROVIDERS: PCP Family Medicine; Visit Provider Physician Assistant
DX: J01.90 Acute sinusitis, unspecified (principal); B97.89 Other viral agents as the cause of diseases classified elsewhere

== ENCOUNTER 2024-12-02 08:42 | Outpatient (REF) | payer OTHER, SELFPAY ==
--- OUTSIDE RECORDS SUMMARY | 2024-12-02 09:34 | XMS_ITS | Patient Health Record ---
Author Organization [facility] Address [address] [place] [address] Care Team Providers Care Patient Advocate Name Role Phone Martin Thorne Primary Care Provider Unavailab Dio Whitaker Unavailable [phone] Reason For Referral No Information Medications Medication SIG (Take, Route, Frequency, Duration) Notes Start Date End Date Status Colyte w Flavor Packs 240 GM 8 ounces every 20 minutes until finished Orally as directed; Duration: 1 day(s) 12/17/2016 Active Pantoprazole Sodium Active Wellbutrin Active LORazepam prn Active ProAir HFA prn Active Furosemide Active Problems Problem Type SNOMED Code ICD Code Onset Dates Problem Status W/U Status Risk Notes Problem Screening for malignant neoplasm of colon (399157362) Encounter for screening for malignant neoplasm of colon (Z12.11) Active confirmed Problem History of adenomatous polyp of colon (687911407) History of adenomatous polyp of colon (Z86.010) Active confirmed Problem Screening for malignant neoplasm of rectum (910370731) Encounter for screening for malignant neoplasm of rectum (Z12.12) Active confirmed Problem Gastroesophageal reflux disease (420303485) Gastroesophageal reflux disease, esophagitis presence not specified (K21.9) Active confirmed Plan Of Treatment Pending Test Test Name Order Date GI BIOPSY 12/31/2016 Future Test Test Name Order Date COLONOSCOPY 11/10/2012 UPPER GI ENDOSCOPY 04/15/2016 COLONOSCOPY 04/15/2016 Next Appt Details Provider Name:Dio Vang , 02/15/2025 09:00:00 AM, [address], [address], [place], [address], Insurance Providers Payer Name Payer Address Payer Phone Subscriber Number Group Number Insured Name Patient Relationship to Insured Coverage Start Date Coverage End Date [facility] [address] [facility] [place] [phone] [id number] RAMAN MARTINEZ Self - patient is the insured Medical (General) History Medical History History ICD Code Edema hydradenitis Hyperlipidemia Denies AL,DM,CVA,renal disease Depression Asthma Screening colonoscopy in 2012--several tubular adenomas removed, lipoma at 25 cm(was biopsied), diverticulosis, and internal hemorrhoids GERD Surgical History Surgery Date(Month/Year) Pilonidal cyst
[2024-12-02 13:00] LABS: Chlamydia pneumoniae PCR Not Detected (Not Detect.); Coronavirus 229E PCR Not Detected (Not Detect.); Coronavirus HKU1 PCR Not Detected (Not Detect.); Coronavirus NL63 PCR Not Detected (Not Detect.); Coronavirus OC43 PCR Not Detected (Not Detect.); RSV PCR Not Detected (Not Detect.); Rhino/Enterovirus PCR Not Detected (Not Detect.); SARS-CoV-2 PCR Not Detected (Not Detect.)
[2024-12-02 13:40] LABS: Influenza A H1 PCR Not Detected (Not Detect.); Influenza A H1-2009 PCR Not Detected (Not Detect.); Influenza A H3 PCR Not Detected (Not Detect.)
== END 2024-12-02 08:43 | disposition home or self-care (01) ==
LOC: HO.LAB 08:42
PROVIDERS: PCP Family Medicine; Visit Provider Physician Assistant
DX: J01.90 Acute sinusitis, unspecified (principal); B97.89 Other viral agents as the cause of diseases classified elsewhere; J06.9 Acute upper respiratory infection, unspecified; F17.210 Nicotine dependence, cigarettes, uncomplicated
CPT/HCPCS: 87633

== ENCOUNTER 2024-12-14 09:39 | Outpatient (REF) | payer OTHER, SELFPAY ==
--- OUTSIDE RECORDS SUMMARY | 2024-12-14 12:52 | XMS_ITS | Patient Health Record ---
Author Organization [facility] Address [address] [place] [address] Care Team Providers Care Immigration Case Manager Name Role Phone Martin Thorne Primary Care Provider Unavailab Dio Whitaker Unavailable [phone] Reason For Referral No Information Medications Medication [...] Problem Screening for malignant neoplasm of colon (478327750) Encounter for screening for malignant neoplasm of colon (Z12.11) Active confirmed Problem History of adenomatous polyp of colon (942440831) History of adenomatous polyp of colon (Z86.010) Active confirmed Problem Screening for malignant neoplasm of rectum (679832851) Encounter for screening for malignant neoplasm of rectum (Z12.12) Active confirmed Problem Gastroesophageal reflux disease (440860083) Gastroesophageal reflux disease, esophagitis presence not specified (K21.9) Active confirmed Plan Of Treatment Pending Test Test Name Order Date GI BIOPSY 12/31/2016 Future Test Test Name Order Date COLONOSCOPY 11/10/2012 UPPER GI ENDOSCOPY 04/15/2016 COLONOSCOPY 04/15/2016 Next Appt Details Provider Name:Dio Vang , 02/15/2025 09:00:00 AM, [address], [address], [place], [address], Insurance Providers Payer Name Payer Address Payer Phone Subscriber Number Group Number Insured Name Patient Relationship to Insured Coverage Start Date Coverage End Date [facility] [address] [place] [phone] [id number] RAMAN MARTINEZ Self - patient is the insured Medical (General) History Medical History History ICD Code Edema hydradenitis Hyperlipidemia Denies [place],DM,CVA,renal disease Depression Asthma Screening colonoscopy in 2012--several tubular adenomas removed, lipoma at 25 cm(was biopsied), diverticulosis, and internal hemorrhoids GERD Surgical History Surgery Date(Month/Year) Pilonidal cyst
== END 2024-12-14 09:40 | disposition home or self-care (01) ==
LOC: HO.LNP 09:39
PROVIDERS: PCP Family Medicine; Visit Provider Internal Medicine
DX: N30.01 Acute cystitis with hematuria (principal); Z79.899 Other long term (current) drug therapy
CPT/HCPCS: 81003; 87086; 87088; 87186

== ENCOUNTER 2024-12-14 09:39 | Outpatient (AMB) | payer OTHER, SELFPAY ==
[2024-12-14 09:49] VITALS: BP 135/80; PULSE 106; TEMP 37; O2SAT 97; BMI 37.7
--- NOTE | 2024-12-14 09:49 | AM.OFFWIN_ITS ---
Intake Vital Signs 12/14/24 09:49 Height 5 ft 7 in Weight 241 lb BMI 37.7 BP 135/80 Blood Pressure Location Lt brachial Position Sitting Pulse 106 H Pulse Source Pulse Oximeter Temp 98.6 F Temp Source Oral Pulse Oximetry (%) 97 Intake Visit Reasons: EP-uti Intake Note: frequent urination feeling (frequency and urgency), urine strong smell since a couple of weeks. The EP has the past history of UTI. Patient Tobacco Use Status: Current everyday Tobacco user Allergies No Known Allergies (No Known Allergies*) Allergy (Verified 12/02/24 08:47) Medication List - Last Reviewed 12/14/24 by Sabiha Jean Baptiste MA albuterol sulfate 90 mcg/actuation 2 puffs inhalation Q6H PRN benzonatate 100 mg PO BID PRN 14 days blood sugar diagnostic (FreeStyle Lite Strips) 1 strip miscellaneous DAILY blood-glucose meter (FreeStyle Lite Meter kit) as directed to check blood sugar fluticasone propionate 50 mcg/actuation (Flonase Allergy Relief) 1 spray intranasal DAILY lancets (FreeStyle Lancets) Use to monitor blood glucose once daily levocetirizine (Xyzal) 5 mg PO BEDTIME naproxen 500 mg PO BID PRN nitrofurantoin macrocrystal 100 mg PO BID 7 days pantoprazole 40 mg PO DAILY 30 days prednisone 20 mg PO QAM tirzepatide (Mounjaro) 2.5 mg (0.5 mL) subcut QWEEK Do you need a note to return to daycare/school/sports/work: Yes HPI EP-uti HPI Details History of Present Illness The patient is a 64-year-old female presenting with urinary symptoms. Urinary symptoms: - The urinary symptoms started approxima tely three weeks ago. - The patient experiences urgency that s he describes as worse than the associated pain. - Presence of blood in the urine was not ed. - The patient reported very strong-smell ing urine in the mornings over these three weeks. - The urine analysis indicates infection - There was an occurrence of an intestin al issue around last Thursday, which the patient suspected could have contributed to introducing bacteria into the bladder. Diagnostic Results: - Urinalysis shows 3+ lipid gastritis, 3 + blood. - Normal kidney functions from earlier m etabolic profile this year. Problem List - Urinary Tract Infection (UTI) Plan - Initiate treatment for Urinary Tract I nfection with nitrofurantoin, one tablet taken b.i.d. daily for seven days - Send urine for culture to identify spe cific pathogens and ensure appropriate antibiotic susceptibility. - push fluids Review of Systems - General: No fever no chills - Neurological: No headaches no dizziness Physical Exam - General: No acute distress - HEENT: No acute findings - Neck: Supple - back no CVAT - Gastrointestinal: Mild suprapubic dis comfort with pressure - Extremities: No new findings - HOSPITAL INSURANCE REPRESENTATIVE: Alert awake oriented x3 motor in tact - Skin: Normal turgor PFSH Medical History Seasonal allergies Routine physical examination Social History Household Members: Children Housing: House Alcohol intake: current Patient Tobacco Use Status: Current everyday Tobacco user Cigarettes Per Day: 14 e-Cigarette/Vaping Use: Never Used Second Hand Smoke Exposure: No service: No Current occupational status: employed 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[employer]) Sexual orientation: Unable to collect Gender identity: Unable to collect Cognitive needs: No Hearing needs: No Vision needs: No Physical Exam Vital Signs: Last Vital Signs Temp 98.6 F 12/14/24 09:49 Pulse 106 H 12/14/24 09:49 BP 135/80 12/14/24 09:49 Pulse Ox 97 12/14/24 09:49 BMI result Body Mass Index 37.7 Results AMB Urinalysis, Automated UA Leukoctes 500 Consuelo/uL Last Edit by Sabiha Jean Baptiste MA on 12/14/24 10:35 3+ Sabiha Jean Baptiste 12/14/24 10:35 UA Nitrite Positive Last Edit by Sabiha Jean Baptiste MA on 12/14/24 10:35 UA Urobilinogen 0.2 mg/dL Last Edit by Sabiha Jean Baptiste MA on 12/14/24 10:35 UA Protein 100 mg/dL Last Edit by Sabiha Jean Baptiste MA on 12/14/24 10:35 2+ Sabiha Jean Baptiste 12/14/24 10:35 UA pH 6.0 Last Edit by Sabiha Jean Baptiste MA on 12/14/24 10:35 UA Blood 200 Kadeem/uL Last Edit by Sabiha Jean Baptiste MA on 12/14/24 10:35 3+ Sabiha Jean Baptiste 12/14/24 10:35 UA Specific [place] 1.030 Last Edit by Sabiha Jean Baptiste MA on 12/14/24 10:3 5 UA Ketone Negative Last Edit by Sabiha Jean Baptiste MA on 12/14/24 10:35 UA Bilirubin 0 mg/dL Last Edit by Sabiha Jean Baptiste MA on 12/14/24 10:35 UA Glucose 0 mg/dL Last Edit by Sabiha Jean Baptiste MA on 12/14/24 10:35 Results Reviewed Results Reviewed: Laboratory Last Values Urine pH (Auto) 6.0 12/14/24 10:31 Specific [place] (Auto) 1.030 12/14/24 10:31 Urine Protein (Auto) 100 mg/dL H* 12/14/24 10:31 Glucose (UA)(Auto) 0 mg/dL 12/14/24 10:31 Urine Ketones (Auto) Negative 12/14/24 10:31 Urine Blood (Auto) 200 Kadeem/uL H* 12/14/24 10:31 Urine Nitrite (Auto) Positive A* 12/14/24 10:31 Urine Bilirubin (Auto) 0 mg/dL 12/14/24 10:31 Urine Urobilinogen (Auto) 0.2 mg/dL 12/14/24 10:31 Leukocyte Esterase (Auto) 500 Consuelo/uL H* 12/14/24 10:31 Assessment & Plan Assessment & Plan (1) Acute cystitis with hematuria: Code(s): N30.01 - Acute cystitis with hematuria Plan Urinary symptoms: - The urinary symptoms started approximately three weeks ago. - The patient experiences urgency that she describes as worse than the associated pain. - Presence of blood in the urine was noted. - The patient reported very strong-smelling urine in the mornings over these three weeks. - The urine analysis indicates infection - There was an occurrence of an intestinal issue around last Thursday, which the patient suspected could have contributed to introducing bacteria into the bladder. Diagnostic Results: - Urinalysis shows 3+ lipid gastritis, 3+ blood. - Normal kidney functions from earlier metabolic profile this year. Problem List - Urinary Tract Infection (UTI) Plan - Initiate treatment for Urinary Tract Infection with nitrofurantoin, one tablet taken b.i.d. daily for seven days - Send urine for culture to identify specific pathogens and ensure appropriate antibiotic susceptibility. - push fluids Orders: Orders Urine Culture Today N30.01 - Acute cystitis with hematuria AMB Urinalysis Automated Today Z13.9 - Encounter for screening, unspecified Medications: New nitrofurantoin macrocrystal must administer with a meal/food 100 mg PO BID 14 caps 0RF 7 days Coding Level of Care Code Est Pt Level 3 (51135) Diagnoses Acute cystitis with hematuria N30.01
== END 2024-12-14 11:18 | disposition home or self-care (01) ==
PROVIDERS: PCP Family Medicine; Visit Provider Internal Medicine
DX: N30.01 Acute cystitis with hematuria (principal); Z13.9 Encounter for screening, unspecified

== ENCOUNTER 2024-12-20 12:41 | Outpatient (REF) | payer OTHER, SELFPAY | END 2024-12-20 12:42 | disposition home or self-care (01) | LOC: HO.LAB 12:41 | PROVIDERS: PCP Family Medicine | DX: N30.00 Acute cystitis without hematuria (principal); L03.115 Cellulitis of right lower limb | CPT/HCPCS: 81003; 87086 ==

== ENCOUNTER 2024-12-20 12:41 | Outpatient (AMB) | payer OTHER, SELFPAY ==
--- NOTE | 2024-12-20 12:43 | MHC.OFFWIV ---
Intake Vital Signs 12/20/24 12:44 Height 5 ft 7 in Weight 241 lb BMI 37.7 BP 140/86 H Blood Pressure Location Lt brachial Position Sitting Pulse 85 Pulse Source Pulse Oximeter Temp 98.6 F Temp Source Oral Pulse Oximetry (%) 96 Oxygen Delivery Method Room Air Intake Visit Reasons: EP-uti & reaction with antibiotic, rt knee lump Intake Note: UTI symptoms persists as she stopped medication after five days as she developed some reaction such as hives and flash feeling in her face as well as on and off chills. She still feels some of the medicine reactions. She also complains of a bump in her rt knee started last Thursday. Patient Tobacco Use Status: Current everyday Tobacco user Allergies nitrofurantoin Allergy (Mild, Verified 12/20/24 13:08) Hives, chill Do you need a note to return to daycare/school/sports/work: No HPI HPI Comments History of Present Illness Details History - The patient is a 64-year-old female presenting with symptoms of a urinary tract infection and a skin condition at the back/side of the right knee. - Urinary tract infection: The patient reported initial symptoms of blood in urine and urgency, which improved with nitrofurantoin, but burning sensation persisted. Denies fevers. - The patient is a regular water drinker and noted her urine was pale yellow, though she expected it to be clearer. - The patient attempted to schedule an appointment with her regular provider but was unsuccessful. - Skin condition: The patient noticed a bump at the back of her knee, which was warm and red, but still palpable and sore. - The patient has a history of cysts and suspected the bump might be a cyst or cellulitis. - The patient has an upcoming dermatology appointment to further evaluate the skin condition. Review of Systems - Genitourinary: Reports burning sensation during urination, denies urgency and hematuria currently. - Dermatological: Reports a warm, palpable bump at the back of the knee, denies itching or other skin changes. All systems reviewed and are unremarkable except as noted in HPI Physical Exam General: Cooperative, healthy appearing, comfortable, no acute distress and well developed Orientation: Patient oriented x3 Limitations: No limitations Head: Normal to inspection Ears: Hearing grossly normal bilaterally Face and sinus: Normal facial exam Neck: Normal visual inspection and Yes full ROM Respiratory: Normal respiratory effort and able to speak in complete sentences. Skin: right medial knee with erythema warmth and palpable firm lump under skin, TTP. 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[employer]) Sexual orientation: Unable to collect Gender identity: Unable to collect Cognitive needs: No Hearing needs: No Vision needs: No Physical Exam Vital Signs: BMI result Body Mass Index 37.7 Results AMB Urinalysis, Automated UA Leukoctes 0 Consuelo/uL Last Edit by Sabiha Jean Baptiste MA on 12/20/24 13:19 UA Nitrite Negative Last Edit by Sabiha Jean Baptiste MA on 12/20/24 13:19 UA Urobilinogen 0.2 mg/dL Last Edit by Sabiha Jean Baptiste MA on 12/20/24 13:19 UA Protein 0 mg/dL Last Edit by Sabiha Jean Baptiste MA on 12/20/24 13:19 UA pH 6.0 Last Edit by Sabiha Jean Baptiste MA on 12/20/24 13:19 UA Blood 0 Kadeem/uL Last Edit by Sabiha Jean Baptiste MA on 12/20/24 13:19 UA Specific [place] 1.020 Last Edit by Sabiha Jean Baptiste MA on 12/20/24 13:19 UA Ketone Negative Last Edit by Sabiha Jean Baptiste MA on 12/20/24 13:19 UA Bilirubin 0 mg/dL Last Edit by Sabiha Jean Baptiste MA on 12/20/24 13:19 UA Glucose 0 mg/dL Last Edit by Sabiha Jean Baptiste MA on 12/20/24 13:19 Assessment & Plan Assessment & Plan (1) UTI (urinary tract infection): Code(s): N39.0 - Urinary tract infection, site not specified Qualifiers: Urinary tract infection type: acute cystitis Hematuria presence: without hematuria Qualified Code(s): N30.00 - Acute cystitis without hematuria Plan: Plan - UA neg for infection or blood, sending culture. - Initiate treatment with Cefuroxime for five days to address the urinary tract infection and potential cellulitis. - Advise the patient to avoid pantoprazole while taking Cefuroxime and use alternatives like Tums or Pepcid. - Send urine culture to confirm the presence of infection. - Encourage continued hydration to aid in symptom relief. - Follow up with dermatology for further evaluation of the skin condition. Patient was informed and verbally consented to the use of an ambient scribe for clinic note documentation during this visit. (2) Cellulitis: Code(s): L03.90 - Cellulitis, unspecified Qualifiers: Site of cellulitis: extremity Site of cellulitis of extremity: lower extremity Laterality: right Qualified Code(s): L03.115 - Cellulitis of right lower limb Plan: as above Orders: Orders Urine Culture Today N39.0 - Urinary tract infection, site not specified AMB Urinalysis Automated Today Z13.9 - Encounter for screening, unspecified Medications: New cefuroxime axetil 500 mg PO Q12H 10 tabs 0RF Coding Level of Care Code Est Pt Level 4 (05018) Diagnoses Acute cystitis without hematuria N30.00 Urinary tract infection type: acute cystitis Hematuria presence: without hematuria Cellulitis of right lower extremity L03.115 Site of cellulitis: extremity Site of cellulitis of extremity: lower extremity Laterality: right
[2024-12-20 12:44] VITALS: BP 140/86; PULSE 85; TEMP 37; O2SAT 96; BMI 37.7
--- OUTSIDE RECORDS SUMMARY | 2024-12-20 15:56 | XMS_ITS | Patient Health Record ---
Author Organization [facility] Address [address] [place] [address] Care Team Providers Care Helper Coordinator Name Role Phone Martin Thorne Primary Care Provider Unavailab Dio Whitaker Unavailable [phone] Reason For Referral No Information Medications Medication [...] Problem Screening for malignant neoplasm of colon (461457563) Encounter for screening for malignant neoplasm of colon (Z12.11) Active confirmed Problem History of adenomatous polyp of colon (484392059) History of adenomatous polyp of colon (Z86.010) Active confirmed Problem Screening for malignant neoplasm of rectum (551087513) Encounter for screening for malignant neoplasm of rectum (Z12.12) Active confirmed Problem Gastroesophageal reflux disease (132554824) Gastroesophageal reflux disease, esophagitis presence not specified (K21.9) Active confirmed Plan Of Treatment Pending Test Test Name Order Date GI BIOPSY 12/31/2016 Future Test Test Name Order Date COLONOSCOPY 11/10/2012 UPPER GI ENDOSCOPY 04/15/2016 COLONOSCOPY 04/15/2016 Next Appt Details Provider Name:Dio Vang , 02/15/2025 09:00:00 AM, [address], [address], [place], [address], Insurance Providers Payer Name Payer Address Payer Phone Subscriber Number Group Number Insured Name Patient Relationship to Insured Coverage Start Date Coverage End Date [facility] [address] [facility] [place] [phone] [id number] RAMAN MARTINEZ Self - patient is the insured Medical (General) History Medical History History ICD Code Edema hydradenitis Hyperlipidemia Denies CT,DM,CVA,renal disease Depression Asthma Screening colonoscopy in 2012--several tubular adenomas removed, lipoma at 25 cm(was biopsied), diverticulosis, and internal hemorrhoids GERD Surgical History Surgery Date(Month/Year) Pilonidal cyst
== END 2024-12-20 13:35 | disposition home or self-care (01) ==
PROVIDERS: PCP Family Medicine; Visit Provider Physician Assistant
DX: N30.00 Acute cystitis without hematuria (principal); L03.115 Cellulitis of right lower limb; Z13.9 Encounter for screening, unspecified

== ENCOUNTER 2024-12-29 05:55 | Outpatient (REF) | payer OTHER, SELFPAY ==
--- OUTSIDE RECORDS SUMMARY | 2024-12-29 05:58 | XMS_ITS | Patient Health Record ---
Author Organization [facility] Address [address] [place] [address] Care Team Providers Care Electronic Equipment Set Up Operator Name Role Phone Martin Thorne Primary Care Provider Unavailab Dio Whitaker Unavailable [phone] Reason For Referral No Information Medications Medication [...] Problem Screening for malignant neoplasm of colon (265034478) Encounter for screening for malignant neoplasm of colon (Z12.11) Active confirmed Problem History of adenomatous polyp of colon (271825247) History of adenomatous polyp of colon (Z86.010) Active confirmed Problem Screening for malignant neoplasm of rectum (838026412) Encounter for screening for malignant neoplasm of rectum (Z12.12) Active confirmed Problem Gastroesophageal reflux disease (003057481) Gastroesophageal reflux disease, esophagitis presence not specified (K21.9) Active confirmed Plan Of Treatment Pending Test Test Name Order Date GI BIOPSY 12/31/2016 Future Test Test Name Order Date COLONOSCOPY 11/10/2012 UPPER GI ENDOSCOPY 04/15/2016 COLONOSCOPY 04/15/2016 Next Appt Details Provider Name:Dio Vang , 02/15/2025 09:00:00 AM, [address], [address], [place], [address], Insurance Providers Payer Name Payer Address Payer Phone Subscriber Number Group Number Insured Name Patient Relationship to Insured Coverage Start Date Coverage End Date [facility] [address] [place] [place] [place] [phone] [id number] RAMAN MARTINEZ Self - patient is the insured Medical (General) History Medical History History ICD Code Edema hydradenitis Hyperlipidemia Denies [place],DM,CVA,renal disease Depression Asthma Screening colonoscopy in 2012--several tubular adenomas removed, lipoma at 25 cm(was biopsied), diverticulosis, and internal hemorrhoids GERD Surgical History Surgery Date(Month/Year) Pilonidal cyst
[2024-12-29 06:12] LABS: MANUAL DIFF FLAG NO
[2024-12-29 07:21] LABS: Hematocrit 40.4 % (37.0-47.0); Hemoglobin 13.3 g/dl (12.0-16.0); Imm Gran Abs Auto 0.03 X10*3/uL (0.00-0.03); Imm Gran Pct Auto 0.4 % (0.0-0.4); Lymphocytes Absolute Auto 2.5 X10*3/uL (1.2-4.9); Mean Corpuscular HGB Conc 32.9 g/dl (31.0-35.0); Mean Corpuscular Hemoglobin 30.2 pg (27.0-33.0); Mean Corpuscular Volume 91.6 fL (80.0-98.0); NRBC Abs Auto 0.000 X10*3/uL (0.0-0.012); NRBC Pct Auto 0.0 /100WBC (0.0-0.2); Platelet Count 270 X10*3/uL (160-400); Red Blood Count 4.41 X10*6/uL (4.20-5.50); White Blood Count 8.2 X10*3/uL (4.8-10.8)
[2024-12-29 07:38] LABS: Appearance Urine Clear; Glucose Urine UA Negative (Negative); PH 5.0 (5.0-9.0); Specific Gravity - Urine 1.015 (1.005-1.025)
[2024-12-29 08:02] LABS: Microalbum/Creatinine Ratio Ur 8.8 ug/mg cr (<30)
[2024-12-29 08:03] LABS: Alanine Aminotransferase 20 U/L (0-31); Albumin Level 4.2 g/dL (3.5-5.0); Alkaline Phosphatase 77 U/L (39-117); Anion Gap 11 (12-20); Aspartate Amino Transferase 17 U/L (5-31); Blood Urea Nitrogen 16 mg/dL (9-16); Calcium 9.1 mg/dL (8.4-10.2); Carbon Dioxide 24 mmol/L (22-29); Chloride 110 mmol/L (96-108); Cholesterol 220 mg/dL (<200); Estimated Glomerular Filt Rate > 60; HDL Cholesterol 45 mg/dL (>40); Potassium 4.1 mmol/L (3.3-5.1); Sodium 141 mmol/L (135-145); Total Protein 6.6 g/dL (6.5-8.0); Triglycerides 160 mg/dL (<150)
== END 2024-12-29 05:56 | disposition home or self-care (01) ==
LOC: HO.LAB 05:55
PROVIDERS: PCP Family Medicine; Visit Provider Family Medicine
DX: Z00.00 Encounter for general adult medical examination without abnormal findings (principal); I10 Essential (primary) hypertension; E55.9 Vitamin D deficiency, unspecified
CPT/HCPCS: 36415; 80053; 80061; 81003; 82043; 82306; 82570; 84443; 85025

== ENCOUNTER 2025-01-03 08:44 | Outpatient (REF) | payer OTHER, SELFPAY ==
[2025-01-03 14:22] LABS: Appearance Urine Clear; Glucose Urine UA Negative (Negative); PH 6.0 (5.0-9.0); Specific Gravity - Urine 1.010 (1.005-1.025)
== END 2025-01-03 08:45 | disposition home or self-care (01) ==
LOC: HO.LAB 08:44
PROVIDERS: PCP Family Medicine; Visit Provider Family Medicine
DX: E11.9 Type 2 diabetes mellitus without complications (principal); R39.89 Other symptoms and signs involving the genitourinary system; E66.9 Obesity, unspecified; Z68.37 Body mass index [BMI] 37.0-37.9, adult
CPT/HCPCS: 81003; 83036; 87086

== ENCOUNTER 2025-01-03 08:44 | Outpatient (AMB) | payer OTHER, SELFPAY ==
--- NOTE | 2025-01-03 08:51 | MHC.PC.OV ---
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 Machine Required: No Allergies nitrofurantoin Allergy (Mild, Verified 01/03/25 08:59) Hives, chill Medication List - Last Reconciled 01/03/25 by Martin Thorne MD albuterol sulfate 90 mcg/actuation 2 puffs inhalation Q6H PRN benzonatate 100 mg PO BID PRN 14 days blood sugar diagnostic (FreeStyle Lite Strips) 1 strip miscellaneous DAILY blood-glucose meter (FreeStyle Lite Meter kit) as directed to check blood sugar cefuroxime axetil 500 mg PO Q12H fluticasone propionate 50 mcg/actuation (Flonase Allergy Relief) 1 spray intranasal DAILY lancets (FreeStyle Lancets) Use to monitor blood glucose once daily levocetirizine (Xyzal) 5 mg PO BEDTIME naproxen 500 mg PO BID PRN pantoprazole 40 mg PO DAILY 30 days prednisone 20 mg PO QAM tirzepatide (Mounjaro) 2.5 mg (0.5 mL) subcut QWEEK Tobacco use date assessed: 10/13/24 Dental Screening Dental Screen Date: 10/13/24 HPI f/u DM HPI Details 64 y/o female presents to f/u diabetes, labs. Labs drawn 12/29/24. Reviewed labs with pt. Triglycerides 160. TC 220. LDL 143. HDL 45. Vitamin D low at 19.4. Blood pressure today Last A1c 10/13/24 6.6%. A1c today 01/03/25 is 7.7%. Pt notes she is not taking mounjaro and glipizide. She states she is afraid of the mounjaro. Reports ongoing abnormal urine. Notes hx of UTI. HPI Comments History of Present Illness Details Documentation assistance for Martin Thorne MD, was provided by Breezy Dillard,? Varnish Melter Helper on 01/03/2025 at 9:03 AM EST. I, Dr. Thorne, have read, observed, and verified documentation. 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[employer]) Sexual orientation: Unable to collect Gender identity: Unable to collect Cognitive needs: No Hearing needs: No Vision needs: No Questionnaire Thrive Questionnaire Date Thrive assessed: 10/13/24 I am a: Patient What is your living situation today?: I have a steady place to live Within the past 12 months, did the food you bought not last and you didn't have the money to get more?: I choose not to answer this question Within the past 12 months, did you worry whether your food would run out before you got money to buy more?: I choose not to answer this question Do you have trouble paying for medicines?: No Do you have trouble getting transportation to medical appointments?: No Do you have trouble paying your heating and electricity bill?: Yes Do you have trouble taking care of your child, family member or friend?: No Do you have trouble with day-to-day activities such as bathing, preparing meals, shopping, managing finances, etc.?: No Are you currently unemployed and looking for a job?: No Are you interested in more education?: No Please select the resources that you would like help with: None Currently or been in a relationship where the following occur: No concerns reported THRIVE Score: 1 CRISSY-7 AMB Questionnaire CRISSY-7 Date CRISSY - 7 assessed: 10/13/24 Source: Developed by Drs. Dio Maxwell, Dalia Chu, Jak Doty and colleagues, with an educational tomi from [employer]. Review of Systems Const Denies chills, Denies fatigue, Denies fever(s), Denies headache(s) and Denies weakness ENT Denies dizziness and Denies headache(s) Card Denies dyspnea Resp Denies cough, Denies dyspnea, Denies wheezing and Denies other (shortness of breath) Musc Denies numbness and Denies tingling Neuro Denies dizziness, Denies headache(s), Denies numbness, Denies tingling and Denies weakness Psych Denies anxiety and Denies depression Endo Denies fatigue Aller/Immun Denies wheezing Physical exam (Primary Care) Vital Signs: Last Vital Signs Temp 98.1 F 01/03/25 09:01 Pulse 89 01/03/25 09:01 Resp 16 01/03/25 09:01 BP 120/78 01/03/25 09:01 Pulse Ox 96 01/03/25 09:01 Oxygen Delivery Method Room Air 01/03/25 09:01 BMI result Body Mass Index 37.7 Tobacco/Smoking Status: Tobacco use Status Tobacco use date assessed 10/13/24 01/03/25 08:52 Patient Tobacco Use Status Current everyday Tobacco 01/03/25 08:52 e-Cigarette/Vaping Use Never Used 01/03/25 08:52 Thrive Assessment: Date of Thrive Assessment Date Thrive assessed 10/13/24 01/03/25 08:52 Currently or been in a relationship where the following occur: No concerns reported Const General: well developed; No acute distress Nutritional Appearance: well nourished Orientation/consciousness: patient oriented x3 HENMT Head: Yes normocephalic and Yes atraumatic Eyes General: appearance normal, both eyes and all related structures Pupils: Equal, round and reactive pupils present EOM: EOMs intact bilaterally Resp Effort & Inspection: normal respiratory effort Neuro General: patient oriented x3 and gait normal Cranial nerves: Yes Equal, round and reactive pupils present Psych Affect: normal affect Results AMB Hemoglobin A1c AMB Hemoglobin A1c 7.7 % Last Edit by AMELIA Grady on 01/03/25 09:30 Coding Level of Care Code Est Pt Level 4 (25137) Diagnoses Type 2 diabetes mellitus without complication, without long-term current use of insulin E11.9 Diabetes mellitus complication status: without complication Diabetes mellitus group home insulin use: without group home use Diabetes mellitus type: type 2 Obesity E66.9 Abnormal urine color R39.89 Assessment & Plan Assessment & Plan (1) Diabetes: Code(s): E11.9 - Type 2 diabetes mellitus without complications Category: Medical Qualifiers: Diabetes mellitus complication status: without complication Diabetes mellitus group home insulin use: without group home use Diabetes mellitus type: type 2 Qualified Code(s): E11.9 - Type 2 diabetes mellitus without complications Plan: A1c has climbed further to 7.7%. Poorly controlled diabetes. Her medication was changed to Mounjaro to try to help with compliance as she had not been taking her medication consistently. However, patient never took them Mounjaro and simply stopped the oral medication. Patient says she is willing to start Mounjaro and I encouraged her to do so She will call me if she does not take a Mounjaro or does not tolerate it. (2) Obesity: Code(s): E66.9 - Obesity, unspecified Category: Medical Plan: Weight is stable but too high. As above, she plans to start Mounjaro which may help with weight. Will follow (3) Abnormal urine color: Code(s): R39.89 - Other symptoms and signs involving the genitourinary system Category: Medical Plan: Complaints of abnormal urine color. She had a recent UTI which was treated. Initially she was given nitrofurantoin but this caused hives. Switched to cefuroxime Patient says she still has abnormal color to her urine. Most recent culture was negative. Will recheck urinalysis and culture Orders: Orders Urine Culture Today R39.89 - Other symptoms and signs involving the genitourinary system AMB Hemoglobin A1c Today E11.9 - Type 2 diabetes mellitus without complications UA CC w/rflx Micro + Cult Today R39.89 - Other symptoms and signs involving the genitourinary system Medications: Refilled tirzepatide (Mounjaro) for 4 weeks 2.5 mg (0.5 mL) subcut QWEEK 2 mL 0RF R39.89 - Other symptoms and signs involving the genitourinary system
--- OUTSIDE RECORDS SUMMARY | 2025-01-03 08:57 | XMS_ITS | Patient Health Record ---
Author Organization [facility] Address [address] [place] [address] Care Team Providers Care Radio Mechanic Name Role Phone Martin Thorne Primary Care Provider Unavailab Dio Whitaker Unavailable [phone] Reason For Referral No Information Medications Medication [...] Problem Screening for malignant neoplasm of colon (377314120) Encounter for screening for malignant neoplasm of colon (Z12.11) Active confirmed Problem History of adenomatous polyp of colon (854065602) History of adenomatous polyp of colon (Z86.010) Active confirmed Problem Screening for malignant neoplasm of rectum (471143197) Encounter for screening for malignant neoplasm of rectum (Z12.12) Active confirmed Problem Gastroesophageal reflux disease (441078131) Gastroesophageal reflux disease, esophagitis presence not specified (K21.9) Active confirmed Plan Of Treatment Pending Test Test Name Order Date GI BIOPSY 12/31/2016 Future Test Test Name Order Date COLONOSCOPY 11/10/2012 UPPER GI ENDOSCOPY 04/15/2016 COLONOSCOPY 04/15/2016 Next Appt Details Provider Name:Dio Vang , 02/15/2025 09:00:00 AM, [address], [address], [place], [address], Insurance Providers Payer Name Payer Address Payer Phone Subscriber Number Group Number Insured Name Patient Relationship to Insured Coverage Start Date Coverage End Date [facility] [address] [place] [phone] [id number] RAMAN MARTINEZ Self - patient is the insured Medical (General) History Medical History History ICD Code Edema hydradenitis Hyperlipidemia Denies MS,DM,CVA,renal disease Depression Asthma Screening colonoscopy in 2012--several tubular adenomas removed, lipoma at 25 cm(was biopsied), diverticulosis, and internal hemorrhoids GERD Surgical History Surgery Date(Month/Year) Pilonidal cyst
[2025-01-03 09:01] VITALS: BP 120/78; PULSE 89; RESP 16; TEMP 36.7; O2SAT 96; BMI 37.7
== END 2025-01-03 09:33 | disposition home or self-care (01) ==
LOC: HO.HMCFM 08:44
PROVIDERS: PCP Family Medicine; Visit Provider Family Medicine
DX: E11.9 Type 2 diabetes mellitus without complications (principal); E66.9 Obesity, unspecified; Z68.37 Body mass index [BMI] 37.0-37.9, adult; R39.89 Other symptoms and signs involving the genitourinary system